=== PATIENT | female | born 1955 | race Caucasian/White ===

== ENCOUNTER 2017-04-03 23:21 | Emergency (ER) | payer OTHER ==
[2017-04-03] MEDS ORDERED: Adacel (T-DAP) 0.5 ML VIAL ONE (23:42)
--- NOTE | 2017-04-04 07:27 | RAD ---
RADIOGRAPH LEFT HAND 3 VIEWS: HISTORY: A 62-year-old female status post acute hand trauma from fall. FINDINGS: No dislocation. No acute fracture identified. Severe DJD at first CMC. The rest of the joints are relatively normal. IMPRESSION: 1. No acute fracture identified. 2. Severe osteoarthrosis of the first carpometacarpal joint. POS: [facility]
--- NOTE | 2017-04-04 07:43 | RAD ---
LEFT FOREARM: Two views. HISTORY: Injury with pain to the left forearm. FINDINGS/IMPRESSION: No evidence of fracture. No acute osseous abnormality. There are degenerative changes noted at the first carpometacarpal joint. POS: [facility]
== END 2017-04-04 00:14 | disposition home or self-care (01) ==
LOC: SCSER 23:21
DX: S01.81XA Laceration without foreign body of other part of head, initial encounter (principal); S60.222A Contusion of left hand, initial encounter; I10 Essential (primary) hypertension; F41.9 Anxiety disorder, unspecified; E78.5 Hyperlipidemia, unspecified; Z79.899 Other long term (current) drug therapy; Z79.52 Long term (current) use of systemic steroids; Z79.82 Long term (current) use of aspirin; W01.198A Fall on same level from slipping, tripping and stumbling with subsequent striking against other object, initial encounter
CPT/HCPCS: 90471; 90715

== ENCOUNTER 2017-04-30 11:53 | Outpatient (CLI) | payer OTHER ==
[2017-04-30 11:29] LABS: Bilirubin Negative (Negative); Blood, Urine Negative (Negative); Clarity CLEAR (Clear); Glucose, Urine (Dipstick) Negative (Negative); Leukocyte Negative (Negative); Nitrite Negative (Negative); Protein, Urine (Dipstick) Negative (Neg-Trace); Specific Gravity, Urine 1.026 (1.002-1.036); Urobilinogen 0.2 mg/dL (0.2-1.0); pH, Urine 5.5 (5.0-9.0)
[2017-04-30 11:34] LABS: #Eosinphils 0.1 thou/uL (0.0-0.7); #Lymphocytes 1.9 thou/uL (1.20-3.40); #Monocytes 0.7 thou/uL (0.11-0.59); #Neutrophils 6.4 thou/uL (1.40-6.50); %Basophils 0.5 % (0.0-1.0); %Lymphocytes 21.2 % (21.0-51.0); %Monocytes 7.7 % (0.0-10.0); %Neutrophils 69.6 % (42.0-75.0); Bacteria/HPF None Seen HPF (None Seen); Hemoglobin 13.7 g/dL (12.0-16.0); Hyaline Casts/LPF 0-3 HYALINE CAST LPF (0-3 Hyaline); Mean Corpuscular HGB CONC 33.8 g/dL (32.0-36.0); Mean Corpuscular Hemoglobin 34.3 pg (27.0-31.0); Mean Platelet Volume 8.3 fL (7.4-10.4); Pathc Cast-AUWi Flag 0.13 (0-2.49); Platelet Count 228 thou/uL (130-400); RBC Distribution Width 11.4 % (11.5-14.5); RBC/HPF 0-3 HPF (0-3); Squamous Epithelial 0-3 HPF (0-3); WBC/HPF 0-3 HPF (0-3); White Blood Cell (WBC) Count 9.2 thou/uL (4.8-10.8)
[2017-04-30 11:45] LABS: Anion Gap 14 mmol/L (10-20); BUN (Urea Nitrogen) 23 mg/dL (9.8-20.1); Calc. Creatinine Clearance 0 mL/min (70-130); Calcium 10.4 mg/dL (7.8-10.44); Carbon Dioxide 24 mmol/L (23-31); Chloride 106 mmol/L (98-107); Estimated GFR-MDRD 41; Glucose 110 mg/dL (80-115); Potassium 4.2 mmol/L (3.5-5.1); Sodium 140 mmol/L (136-145)
--- NOTE | 2017-04-30 11:56 | RAD ---
2 VIEWS CHEST: Date: 04/30/17 PROVIDED CLINICAL HISTORY: Preop. FINDINGS: Comparison with 05/06/16. Cardiac and mediastinal silhouette is within normal limits. Lungs appear clear. No pleural fluid or p neumothorax apparent. IMPRESSION: No evidence for an acute cardiopulmonary process. POS: [facility]
== END 2017-04-30 11:54 | disposition home or self-care (01) ==
LOC: LABBT 11:53
PROVIDERS: ATTEND Orthopaedic Surgery Hand Surgery
DX: Z01.818 Encounter for other preprocedural examination (principal); M19.042 Primary osteoarthritis, left hand
CPT/HCPCS: 71046; 80048; 81001; 85025; 85730; 93005; 93010

== ENCOUNTER → 2017-05-08 | Day surgery (SDC) | payer OTHER ==
[2017-05-07 10:38] VITALS: BMI 32.9
[~2017-05-08] MED LIST: Bacitracin Zinc Ointment 30 gm TUBE ONE; Bupivacaine PF 0.5% 30 ML VIAL ONE; CEFAZOLIN/Water 2 GM/20 ML SYRINGE ONE; Dexamethasone 20 MG/5 ML VIAL ONE; Fentanyl 100 MCG/2 ML VIAL ONE; HYDROcodone/Acetaminophen 5/325 mg Tablet ONE; Lidocaine 1% PF 5 ML VIAL ONE; Metoclopramide HCl 10 MG/2 ML VIAL ONE; Midazolam HCl 2 mg/2 ml Vial ONE; Ondansetron HCl/PF 4 MG/2 ML Vial ONE; Propofol 200 MG/20 ML VIAL ONE; Sodium Chloride 0.9% 0 ML ONE; Thrombin 5000 UNITS/5 ML VIAL ONE; diphenhydrAMINE 50 MG/ML VIAL ONE
--- NOTE | 2017-05-11 11:58 | OP ---
DATE OF PROCEDURE: 05/08/2017 PREOPERATIVE DIAGNOSIS: Fourth webspace 3.0 cm wound, nonhealing. POSTOPERATIVE DIAGNOSES: 1. Wound as described above. 2. Communication with the joint with no gross purulence, right fourth toe metacarpophalangeal joint. PROCEDURES PERFORMED: 1. Debridement of joint fourth toe metatarsophalangeal joint. 2. Complex closure wound in multiple layers right fourth webspace, foot and toe. FINDINGS: No gross infection seen. Definite early undermining with a connection to the joint, metat arsophalangeal joint of the fourth toe. ESTIMATED BLOOD LOSS: 5 mL. TOURNIQUET TIME: None. DESCRIPTION OF PROCEDURE: After successful general LMA technique by [employer], the limb wa s prepped and draped. Time out was done appropriately. We then inspected the wound and saw that the wound communicated with the joint of the metatarsal phalangeal area of the adjacent fourth digit. T his was on its fibular or lateral side. We did dissect down to this, irrigated with 250 mL using a s yringe and a catheter in the joint and found no gross purulence. We then closed deep layer over this fissure with interrupted 3-0 Vicryl. Then, we debrided the edge of the wound and saw that it could be closed because it was more longitudinal and transverse. Then, we performed a 2-layer closure usin g deep 4-0 Monocryl and then 4-0 nylon with epidural suture simple technique. The toes had excellent circulation when I pulled on the toes to 30 degrees as there was no undue tension and no separation of the suture line. We then placed bulky dressing with antibiotic bacitracin, Adaptic in the web spa ce, including closing the web space down with a dressing and this bulky dressing was then covered wit h a postoperative shoe. Patient had pink toes all on the right foot and left the operating room with out complication.
== END ==
LOC: SDC 10:58
PROVIDERS: ATTEND Orthopaedic Surgery Hand Surgery
PROC: 0JDQ0ZZ Extraction of Right Foot Subcutaneous Tissue and Fascia, Open Approach (ICD-10-PCS; principal; 2017-05-08)
DX: S91.104A Unspecified open wound of right lesser toe(s) without damage to nail, initial encounter (principal); I10 Essential (primary) hypertension; M19.90 Unspecified osteoarthritis, unspecified site; G43.909 Migraine, unspecified, not intractable, without status migrainosus; H91.90 Unspecified hearing loss, unspecified ear; E78.5 Hyperlipidemia, unspecified; K21.9 Gastro-esophageal reflux disease without esophagitis; Z79.82 Long term (current) use of aspirin; Z79.52 Long term (current) use of systemic steroids; Z79.899 Other long term (current) drug therapy; Z88.5 Allergy status to narcotic agent; Z98.51 Tubal ligation status; Z96.653 Presence of artificial knee joint, bilateral; Z96.0 Presence of urogenital implants; Z90.49 Acquired absence of other specified parts of digestive tract; Z90.89 Acquired absence of other organs; Z90.710 Acquired absence of both cervix and uterus; Z98.890 Other specified postprocedural states; Z87.891 Personal history of nicotine dependence
CPT/HCPCS: 96374; A4216; G8978-GP-CL; G8979-GP-CL; G8980-GP-CL; J0131; J1100; J1200; J2001; J2250; J2405; J2704; J2765; J3010; J3490; S0020

== ENCOUNTER 2017-08-10 08:54 | Outpatient (CLI) | payer OTHER ==
[2017-08-10 10:25] LABS: #Basophils 0.1 thou/uL (0.0-0.2); #Eosinphils 0.2 thou/uL (0.0-0.7); #Lymphocytes 2.4 thou/uL (1.20-3.40); #Monocytes 0.9 thou/uL (0.11-0.59); #Neutrophils 8.2 thou/uL (1.40-6.50); %Basophils 0.5 % (0.0-1.0); %Eosinophils 1.7 % (0.0-10.0); %Lymphocytes 20.8 % (21.0-51.0); %Monocytes 7.6 % (0.0-10.0); %Neutrophils 69.4 % (42.0-75.0); Hemoglobin 14.2 g/dL (12.0-16.0); Mean Corpuscular HGB CONC 34.2 g/dL (32.0-36.0); Mean Corpuscular Hemoglobin 34.2 pg (27.0-31.0); Mean Platelet Volume 8.3 fL (7.4-10.4); Platelet Count 218 thou/uL (130-400); RBC Distribution Width 11.3 % (11.5-14.5); Red Blood Cell (RBC) Count 4.16 mill/uL (4.20-5.40); White Blood Cell (WBC) Count 11.7 thou/uL (4.8-10.8)
[2017-08-10 10:43] LABS: Bilirubin Negative (Negative); Blood, Urine Negative (Negative); Clarity CLEAR (Clear); Glucose, Urine (Dipstick) Negative (Negative); Leukocyte Negative (Negative); Nitrite Negative (Negative); Protein, Urine (Dipstick) Negative (Neg-Trace); Specific Gravity, Urine 1.024 (1.002-1.036); Urobilinogen 0.2 mg/dL (0.2-1.0); pH, Urine 5.5 (5.0-9.0)
[2017-08-10 10:46] LABS: Anion Gap 15 mmol/L (10-20); BUN (Urea Nitrogen) 23 mg/dL (9.8-20.1); Bacteria/HPF None Seen HPF (None Seen); Calc. Creatinine Clearance 0 mL/min (70-130); Calcium 9.8 mg/dL (7.8-10.44); Carbon Dioxide 22 mmol/L (23-31); Chloride 104 mmol/L (98-107); Estimated GFR-MDRD 50; Glucose 160 mg/dL (80-115); Hyaline Casts/LPF 0-3 HYALINE CAST LPF (0-3 Hyaline); Pathc Cast-AUWi Flag 0.43 (0-2.49); RBC/HPF 0-3 HPF (0-3); Sodium 137 mmol/L (136-145); Squamous Epithelial 0-3 HPF (0-3); WBC/HPF 0-3 HPF (0-3)
--- NOTE | 2017-08-10 11:32 | RAD ---
PA AND LATERAL CHEST XRAY: DATE: 08/10/17. HISTORY: Preoperative evaluation. COMPARISON: 04/30/17. FINDINGS: Cardiac silhouette and pulmonary vasculature are within normal limits. The lungs are clear. There i s stable mild elevation of the right hemidiaphragm. Surgical clips overlie the right upper quadrant. Degenerative changes are again noted in the spine with mild curvature of the lower thoracic spine. IMPRESSION: Stable chest without evidence of acute cardiopulmonary process. POS: [facility]
--- NOTE | 2017-08-10 16:44 | EKG ---
Test Reason : Blood Pressure : / mmHG Vent. Rate : 062 BPM Atrial Rate : 062 BPM P-R Int : 152 ms QRS Dur : 086 ms QT Int : 400 ms P-R-T Axes : 045 007 014 degrees QTc Int : 406 ms Normal sinus rhythm Minimal voltage criteria for LVH, may be normal variant Borderline ECG Confirmed by CELI WASHINGTON ([id number]) on 08/10/2017 4:44:10 PM Referred By: ABEL Confirmed By:CELI WASHINGTON
== END 2017-08-10 08:55 | disposition home or self-care (01) ==
LOC: LABBT 08:54
PROVIDERS: ATTEND Orthopaedic Surgery Hand Surgery
DX: Z01.818 Encounter for other preprocedural examination (principal); M18.9 Osteoarthritis of first carpometacarpal joint, unspecified
CPT/HCPCS: 71046; 80048; 81001; 85025; 85730; 93005; 93010

== ENCOUNTER 2017-08-13 09:25 | Outpatient (CLI) | payer OTHER ==
[2017-08-13 10:29] LABS: #Eosinphils 0.2 thou/uL (0.0-0.7); #Lymphocytes 2.5 thou/uL (1.20-3.40); #Monocytes 0.8 thou/uL (0.11-0.59); %Basophils 0.4 % (0.0-1.0); %Eosinophils 2.2 % (0.0-10.0); %Lymphocytes 29.5 % (21.0-51.0); %Monocytes 9.3 % (0.0-10.0); %Neutrophils 58.5 % (42.0-75.0); Hemoglobin 13.9 g/dL (12.0-16.0); Mean Corpuscular HGB CONC 34.5 g/dL (32.0-36.0); Mean Corpuscular Hemoglobin 34.4 pg (27.0-31.0); Mean Corpuscular Volume 99.6 fl (81.0-99.0); Platelet Count 192 thou/uL (130-400); RBC Distribution Width 11.2 % (11.5-14.5); Red Blood Cell (RBC) Count 4.05 mill/uL (4.20-5.40); White Blood Cell (WBC) Count 8.6 thou/uL (4.8-10.8)
[2017-08-13 10:33] LABS: Bilirubin Negative (Negative); Blood, Urine Negative (Negative); Clarity CLEAR (Clear); Glucose, Urine (Dipstick) Negative (Negative); Leukocyte Small (Negative); Nitrite Negative (Negative); Protein, Urine (Dipstick) Negative (Neg-Trace); Specific Gravity, Urine 1.022 (1.002-1.036); Urobilinogen 0.2 mg/dL (0.2-1.0)
[2017-08-13 10:38] LABS: Bacteria/HPF None Seen HPF (None Seen); Hyaline Casts/LPF 0-3 HYALINE CAST LPF (0-3 Hyaline); Pathc Cast-AUWi Flag 0.14 (0-2.49); RBC/HPF 0-3 HPF (0-3); Squamous Epithelial 0-3 HPF (0-3)
== END 2017-08-13 09:26 | disposition home or self-care (01) ==
LOC: LABBT 09:25
PROVIDERS: ATTEND Orthopaedic Surgery Hand Surgery
DX: Z01.818 Encounter for other preprocedural examination (principal); M18.12 Unilateral primary osteoarthritis of first carpometacarpal joint, left hand
CPT/HCPCS: 81003; 81015; 85025

== ENCOUNTER 2017-08-14 05:56 | Day surgery (SDC) | payer OTHER ==
[2017-08-10 09:14] VITALS: BMI 32.9
[2017-08-14] MEDS ORDERED: CEFAZOLIN/Water 2 GM/20 ML SYRINGE ONE (06:09)
[2017-08-14] MEDS ORDERED: Betamet Acet/Betamet Na Ph 30 MG/5 ML VIAL ONE (06:45)
[2017-08-14] MEDS ORDERED: Sodium Chloride 0.9% 10 ML ONE (06:45)
[2017-08-14] MEDS ORDERED: Bupivacaine PF 0.5% 30 ML VIAL ONE (06:45)
[2017-08-14] MEDS ORDERED: Bacitracin Zinc Ointment 30 gm TUBE ONE (06:45)
[2017-08-14] MEDS ORDERED: Fentanyl 100 MCG/2 ML VIAL ONE (06:53)
[2017-08-14] MEDS ORDERED: Midazolam HCl 2 mg/2 ml Vial ONE (07:27)
[2017-08-14] MEDS ORDERED: Ketorolac Tromethamine 30 MG/ML VIAL ONE (10:51)
--- NOTE | 2017-08-14 11:15 | RAD ---
FOUR INTRAOPERATIVE FLUOROSCOPIC IMAGES OF THE LEFT HAND: Date: 08-14-17 History: Left thumb arthroplasty. Comparison: 04-03-17 FINDINGS: Images demonstrate what appears to be removal of the left trapezium bone with images demonstrating a linear metallic device overlying the hand. Correlation with intraoperative findings is recommended. POS: [facility]
--- NOTE | 2017-08-14 11:30 | OP ---
DATE OF PROCEDURE: 08/14/2017 PREOPERATIVE DIAGNOSES: 1. Left thumb CMC osteoarthritis, severe. 2. Right thumb CMC osteoarthritis, mild. PROCEDURE: 1. Left thumb carpometacarpal joint arthroplasty with flexor carpi radialis tendon transfer. 2. Right thumb carpometacarpal joint injection with Celestone. SPECIMENS REMOVED: Trapezium entire trapezium and osteophytes from the base of the thumb metacarpal. FINDINGS: Severe osteoarthritis, 100% trapezial surface and 70% thumb. COMPLICATIONS: None. SURGEON: Bo Edwards M.D. TOURNIQUET TIME: 90 minutes. ESTIMATED BLOOD LOSS: 20 mL 0.5% Marcaine divided equally amongst all 3 incisions. DESCRIPTION OF PROCEDURE: After successful general anesthesia, the limb was prepped and draped. Bear eout was done appropriately. Then, we prepped the area over the right thumb carpometacarpal joint an d with the C-arm, we injected 1 mL of Celestone and 1 mL of Marcaine into the joint with excellent fi eld for joint space and also C-arm proving we were in the joint space. We then was able to prep and drape the left side, then timeout on the left side for the CMC arthropla sty and then we inflated the tourniquet to 250 mmHg pressure after exsanguination. A curvilinear hoc mayers stick incision was outlined, centered on the thumb carpometacarpal joint over the junction of th e palm and dorsal skin. It was carried through skin, subcutaneous tissue, dissecting the interval be tween the radial nerve, cutaneous branches successfully and the palmar cutaneous branch. We entered the fascial of the thenar muscle inserted on the ridge of the thumb carpometacarpal. Dissected throu gh this, we identified the capsule underneath the capsule of the carpometacarpal joint of the thumb a nd lifted the abductor extensor complex off of this. We performed a capsulotomy and now we were in t he joint. The 100% arthritic change of the trapezium in the ____ wear with large osteophytes around the base of the carpometacarpal joint were identified. We did a complete trapeziectomy and we spared the flexor carpi radialis without damage, lifted trapez ium out. There was some osteophyte formation, even on the second carpometacarpal joint. We removed these as well. The patient then had the radial border of the thumb identified, in its midportion from anterior to po sterior and about 15 mm distal to the articular surface an angle toward the junction of the articular surface of the opposite side in the metaphysis we drilled first with a 2.5 drill bit, then a 3.5 dri ll bit. A small curet to make it slightly larger. We then irrigated this area. A large 3-0 Prolene was placed in the deep and ulnar capsule remnant of the carpometacarpal joint of the first metacarpa l and held in place. We made two incisions, each 6 cm more distal from each other in line with the flexor radialis tendon, dissected down to the tendon, identified the tendon and then this was the most distal of these two. We then went to the most proximal incision, identified the tendon the musculotendinous junction sepa rated the muscle from the tendon and brought this into the more distal wound. Here we debrided all of the muscle until it was repaired. We pulled the tendon into the joint. We used 2-0 Vicryl and a wraparound technique to lessen the wid th and diameter of the graft and then pulled it through with a curved tendon passer with success from the second metacarpal side of the hole in the base of the metacarpal to the opposite side. We then weaved underneath the abductor pollicis complex. Then before we tightened it and sutured in for tens ion, we placed a K-wire in a nearly anatomic position in the first and second metacarpal. K-wire hel d the first through the second metacarpal. It was then cut below the skin. We finally tensioned the graft in two sites on the metacarpal base, 2 sites on the abductor extensor complex, and then suture d it to the flexor carpi radialis to make it centered on the base of the thumb. We then performed th e anterior portion of the procedure in standard fashion with two Troy needles. This was tied deep a nd secure. We released the tourniquet. Wire was cut slightly below the skin at the radial border of the metacar pal. Closed the capsule with interrupted 4-0 Vicryl. Closed subcutaneous tissue at all sites once h emostasis was obtained to include the primary wound and the 2 tendon donor sites with a running 4-0 M onocryl. Suziei-Strips were applied to all 3 incisions. We completed the injection of a total of 20 mL 0.5% Marcaine between all 3 incisions. Bulky dressing was applied and a thumb spica splint and th e digit was pink.
[2017-08-14] MEDS ORDERED: Acetaminophen/Codeine 30-300mg Tablet ONE (13:11)
--- NOTE | 2017-08-17 07:26 | RAD ---
SINGLE LIMITED FLUOROSCOPIC IMAGE RIGHT HAND: Date: 08-14-17 History: Right thumb carpal metacarpal injection. FINDINGS: Single fluoroscopic image demonstrates a needle overlying the carpal metacarpal joint of the thumb. C orrelation with intraoperative findings is recommended. POS: [facility]
== END 2017-08-14 13:45 | disposition home or self-care (01) ==
LOC: SDC 05:56
PROVIDERS: ATTEND Orthopaedic Surgery Hand Surgery
PROC: 3E0U33Z Introduction of Anti-inflammatory into Joints, Percutaneous Approach (ICD-10-PCS; principal; 2017-08-14)
PROC: 0RQT0ZZ Repair Left Carpometacarpal Joint, Open Approach (ICD-10-PCS; principal; 2017-08-14)
DX: M18.0 Bilateral primary osteoarthritis of first carpometacarpal joints (principal); Z88.5 Allergy status to narcotic agent; Z98.890 Other specified postprocedural states
CPT/HCPCS: 76001; 96372; A4216; J0702; J1885; J2250; J3010; J3490; S0020

== ENCOUNTER 2017-12-24 13:00 | Inpatient (IN) | payer OTHER ==
[2017-12-24 12:55] VITALS: BMI 33.8
[2017-12-29] MEDS ORDERED: methylPREDNISolone Sod Succ/PF 125 MG/2 ML VIAL ONE (07:51)
[2017-12-29] MEDS ORDERED: CEFAZOLIN/Water 2 GM/20 ML SYRINGE ONE (07:51)
[2017-12-29] MEDS ORDERED: Sodium Chloride 0.9% 100 ML ONE (07:51)
[2017-12-29] MEDS ORDERED: Hydrocortisone Sod Succ/PF 100 mg/2 ml Vial ONE (08:25)
[2017-12-29] MEDS ORDERED: Midazolam HCl 2 mg/2 ml Vial ONE (08:29)
[2017-12-29] MEDS ORDERED: Fentanyl 100 MCG/2 ML VIAL ONE ×2 (08:29→09:33)
[2017-12-29] MEDS ORDERED: Bupivacaine HCl 0.5%/Epinephrine 1:200,000/PF 30 ml Vial ONE (10:02)
[2017-12-29] MEDS ORDERED: Vancomycin HCl 1.5 GM in Sodium Chloride 0.9% 250 ML 300 ML IVPB SCH (11:15)
--- NOTE | 2017-12-29 11:36 | OP ---
DATE OF PROCEDURE: 12/29/2017 PREOPERATIVE DIAGNOSIS: Degenerative joint disease, left hip. POSTOPERATIVE DIAGNOSIS: Degenerative joint disease, left hip. PROCEDURE: Left total hip arthroplasty. SURGEON: Alireza Silverman M.D. TRUCK CRANE OPERATOR: Octavio Myers PA-C. BLOOD LOSS: About 200 mL. SPECIMEN: None. DRAINS: None. COMPLICATIONS: None. IMPLANTS USED: Galien Accolade #1 stem with a standard 36 mm ceramic head, a 46 mm PSL cup with X3 polyethylene. PROCEDURE IN DETAIL: After informed consent was obtained in the preoperative holding area, the patie nt was taken to the operative suite where general anesthesia was induced. The patient was then posit ioned in the lateral decubitus position. The hip was then prepped and draped in usual sterile fashio n. The patient received preoperative antibiotics. Prior to incision, time-out was called and all me mbers of the surgical team agreed upon site, surgeon, and patient. After this, a longitudinal incisi on was made directly over the trochanter, noted by palpation extending 2 fingerbreadths above and bel ow the trochanter. The deeper subcutaneous layer was undermined with Bovie electrocautery. The ilio tibial band was encountered and incised sharply and the plane below this was developed bluntly. [facility] to hold this opened. The lateral aspect of the trochanter and the abduct or muscles were encountered and then reflected anteriorly off the trochanter using Bovie electrocaute ry. Once this was completed, the anterior capsule was then encountered and identified and copious ca psulotomy was carried out, exposing the femoral neck and head. Dislocation maneuver was then performe d and an in situ provisional neck cut was then made using the oscillating saw. Attention was then tu rned to acetabular preparation and sequential reaming was carried out up to the appropriate diameter and a trial was then malleted into place with good firm resistance and no pullout. The permanent [place]allas tabular shell was then malleted squarely into place, as was the appropriate liner. Once completed, t he wound was copiously irrigated and attention was then turned to femoral preparation. Flexion and ex ternal rotation was performed of the exposed thigh and femoral elevators were then placed at the prox imal aspect of the wound. Canal finder was used to establish the length of the canal and sequential reaming was carried out, followed by broaching. Once the appropriate stability was established with the trial broaches with both flexion, extension and rotational stability, we did trial with neutral a nd 2 mm offset incremental necks. Once the appropriate size was decided upon, with good stability no janene with flexion, extension, internal and external rotation and shuck being negative, we removed the femoral trial broach and malletted into place the permanent prosthesis with good firm fit, which was also stable to rotation. Again, the hip felt very stable to flexion, extension, internal and externa l rotation. Leg lengths appeared near anatomic clinically and we were quite happy with prosthesis pl acement. Copious irrigation was then carried out through the entirety of the wound. Primary closure of the abductors was accomplished with interrupted #2 Vicryl [id number] stitches and the IT ban d was then closed with interrupted #2 Vicryl, oversewn with a #2 running barbed Quill stitch. Subcut aneous fascia was closed with running barbed Quill stitch and a subcuticular Monocryl barbed Quill st itch was used for skin closure and augmented with skin cement. A sterile dressing was applied. The p rocedure was terminated without any complication. All counts were correct. The patient was awakened in the operative suite and taken to the recovery room in stable condition.
[2017-12-29] MEDS ORDERED: Naloxone HCl 0.4 mg/ml Vial IVP PRN (12:00)
[2017-12-29] MEDS ORDERED: Hydrocerin (Eucerin) Cream 120 gm Jar TOP PRN (12:00)
[2017-12-29] MEDS ORDERED: Promethazine HCl 25 MG/ML VIAL IM PRN ×2 (12:00→15:44)
[2017-12-29] MEDS ORDERED: Ketorolac Tromethamine 30 MG/ML VIAL IVP PRN (12:00)
[2017-12-29] MEDS ORDERED: Ondansetron HCl/PF 4 MG/2 ML Vial IVP PRN ×2 (12:00→15:44)
[2017-12-29] MEDS ORDERED: Bupivacaine 0.25% 10 ML VIAL EPIDURAL PRN (12:00)
[2017-12-29] MEDS ORDERED: fentaNYL Citrate/PF 1,250 MCG, Bupivacaine 25 ML in Sodium Chloride 0.9% 250 ML 200 ML EPIDURAL SCH (12:00)
[2017-12-29] MEDS ORDERED: Zolpidem Tartrate 5 MG TAB PO PRN ×2 (12:00→15:44)
[2017-12-29] MEDS ORDERED: Fentanyl/Bupivacaine 250 ML in Premix Bag 1 BAG EPIDURAL SCH (12:00)
[2017-12-29] MEDS ORDERED: traMADol HCl 50 MG TAB PO PRN ×3 (12:00→15:44)
[2017-12-29] MEDS ORDERED: Promethazine HCl 25 MG SUPP PR PRN (12:00)
[2017-12-29] MEDS ORDERED: diphenhydrAMINE 50 MG/ML VIAL IM PRN (12:00)
[2017-12-29] MEDS ORDERED: Naloxone HCl 0.4 mg/ml Vial IV PRN (12:00)
[2017-12-29] MEDS ORDERED: Acetaminophen 325 MG TAB PO PRN (15:44)
[2017-12-29] MEDS ORDERED: Meclizine HCl 25 MG TAB PO PRN (15:44)
[2017-12-29] MEDS ORDERED: Fentanyl 100 MCG/2 ML VIAL SLOW IVP PRN ×2 (15:44)
[2017-12-29] MEDS ORDERED: Acetaminophen/Codeine 30-300mg Tablet PO PRN (15:44)
[2017-12-29] MEDS ORDERED: diphenhydrAMINE 25 MG CAP PO PRN (15:44)
[2017-12-29] MEDS ORDERED: Cyclobenzaprine 10 MG TAB PO PRN (15:44)
[2017-12-29] MEDS ORDERED: Aspirin/APAP/Caffeine Tab (Excedrin Migraine) PO PRN (15:44)
[2017-12-29] MEDS ORDERED: Non-Formulary Item 1 EACH (Buprenorphine [Butrans] 1 PATCH) TOP SCH (15:44)
[2017-12-29] MEDS ORDERED: Lidocaine-Prilocaine 2.5% Cream 5 GM TUBE TOP PRN (15:44)
[2017-12-29] MEDS ORDERED: Promethazine 25 MG TAB PO PRN (15:44)
[2017-12-29] MEDS ORDERED: Tranexamic Acid 1,000 MG in Sodium Chloride 0.9% 100 ML IVPB SCH (15:44)
[2017-12-29] MEDS ORDERED: Lidocaine 5% Patch TD PRN (15:44)
[2017-12-29] MEDS: Sodium Chloride 0.9% 1,000 ML IV SCH (16:23)
--- NOTE | 2017-12-29 16:24 | RAD ---
LEFT HIP TWO VIEWS: 12/29/17 HISTORY: Left hip replacement. FINDINGS: Total hip replacement is in place without perihardware lucency. Soft tissue gas is consistent with re cent surgery. IMPRESSION: Left hip prosthesis is in good radiographic position. POS: [facility]
[2017-12-29] MEDS: diphenhydrAMINE 25 MG CAP PO PRN (18:35)
[2017-12-29] MEDS ORDERED: GLUCOSAM PO SCH ×2 (21:00)
[2017-12-29] MEDS ORDERED: CHONDROIT PO SCH ×2 (21:00)
[2017-12-29] MEDS ORDERED: [UNRECOGNIZED DRUG - OTHER] PO SCH (21:00)
[2017-12-29] MEDS ORDERED: Non-Formulary Item 1 EACH (Potassium [Potassium] 99 MG) PO SCH (21:00)
[2017-12-29] MEDS ORDERED: [UNRECOGNIZED DRUG - OTHER] PO SCH (21:00)
[2017-12-29] MEDS ORDERED: POTASSIUM 99 MG PO SCH (21:00)
[2017-12-29] MEDS ORDERED: MANGANESE PO SCH ×2 (21:00)
[2017-12-29] MEDS: Fish Oil 1,000 MG CAP PO SCH (21:03)
[2017-12-29] MEDS: Acetaminophen 325 MG TAB PO PRN (21:03)
[2017-12-29] MEDS: Zolpidem Tartrate 5 MG TAB PO PRN (21:03)
[2017-12-29] MEDS: OXcarbazepine 300 MG TAB PO SCH (21:04)
[2017-12-29] MEDS: pyridOXINE 50 MG (B6) TAB PO SCH (21:04)
[2017-12-29] MEDS: Aspirin 81 mg Enteric Coated Tablet PO SCH (21:04)
[2017-12-29] MEDS: Calcium Carbonate + Vit D 1 TAB PO SCH (21:04)
[2017-12-29] MEDS: Ferrous Gluconate 324 MG TAB PO SCH (21:05)
[2017-12-29] MEDS: diphenhydrAMINE 50 MG/ML VIAL IVP PRN (21:31)
[2017-12-29] MEDS: CEFAZOLIN/Water 2 GM/20 ML SYRINGE SLOW IVP SCH (21:33)
[2017-12-29] MEDS ORDERED: Ketorolac Tromethamine 30 MG/ML VIAL IVP SCH (22:00)
[2017-12-30] MEDS: diphenhydrAMINE 50 MG/ML VIAL IVP PRN ×2 (01:22→06:28)
[2017-12-30] MEDS: Sodium Chloride 0.9% 1,000 ML IV SCH ×3 (02:36→21:18)
[2017-12-30] MEDS: Acetaminophen 325 MG TAB PO PRN (04:18)
[2017-12-30 05:13] LABS: Hemoglobin 10.3 g/dL (12.0-16.0); Mean Corpuscular HGB CONC 35.5 g/dL (32.0-36.0); Mean Corpuscular Hemoglobin 35.2 pg (27.0-31.0); Mean Platelet Volume 8.2 fL (7.4-10.4); Platelet Count 164 thou/uL (130-400); RBC Distribution Width 11.1 % (11.5-14.5); Red Blood Cell (RBC) Count 2.92 mill/uL (4.20-5.40); White Blood Cell (WBC) Count 11.6 thou/uL (4.8-10.8)
[2017-12-30] MEDS: CEFAZOLIN/Water 2 GM/20 ML SYRINGE SLOW IVP SCH (05:57)
[2017-12-30] MEDS: predniSONE 1 MG TAB PO SCH (08:39)
[2017-12-30] MEDS: Aspirin 81 mg Enteric Coated Tablet PO SCH ×2 (08:40→20:11)
[2017-12-30] MEDS: pyridOXINE 50 MG (B6) TAB PO SCH ×2 (08:40→20:11)
[2017-12-30] MEDS: busPIRone HCl 5 MG TAB PO SCH (08:41)
[2017-12-30] MEDS: Colchicine 0.6 MG TAB PO SCH (08:43)
[2017-12-30] MEDS: Rosuvastatin 10 MG TAB PO SCH (08:43)
[2017-12-30] MEDS: Valsartan 80 MG TAB PO SCH (08:44)
[2017-12-30] MEDS: Senokot S 8.6-50 MG TAB PO SCH ×2 (08:45→20:10)
[2017-12-30] MEDS: Cyanocobalamin (Vitamin B-12) 1,000 MCG TAB PO SCH (08:46)
[2017-12-30] MEDS: Amlodipine 10 MG TAB PO SCH (08:46)
[2017-12-30] MEDS: OXcarbazepine 300 MG TAB PO SCH ×2 (08:47→20:11)
[2017-12-30] MEDS: Ferrous Gluconate 324 MG TAB PO SCH ×2 (08:48→20:10)
[2017-12-30] MEDS: Prenatal Vitamin 1 TAB PO SCH (08:48)
[2017-12-30] MEDS: Multivitamin W/ Minerals 1 TAB PO SCH (08:49)
[2017-12-30] MEDS: AMOXicillin 250 MG CAP PO SCH (08:50)
[2017-12-30] MEDS: Acetaminophen/Codeine 30-300mg Tablet PO PRN ×4 (08:51→22:48)
[2017-12-30] MEDS ORDERED: Furosemide 40 MG TAB PO PRN (09:00)
[2017-12-30] MEDS ORDERED: BIOTIN 5000 MCG PO SCH (09:00)
[2017-12-30] MEDS: diphenhydrAMINE 25 MG CAP PO PRN ×3 (09:33→17:30)
--- NOTE | 2017-12-30 11:38 | PRG ---
DATE OF SERVICE: 12/30/2017 SUBJECTIVE: Anne is a 62-year-old white female who is postop day #1 right total hip arthroplasty . She is doing relatively well and appears very comfortable presently. OBJECTIVE: VITAL SIGNS: Temperature 98.2, pulse 90, respiratory rate is 20 unlabored, O2 saturations 97% on whitney m air, blood pressure 136/66. GENERAL: She is alert and oriented to person, place, time, and situation, and appropriate. She does not appear anxious or uncomfortable. EXTREMITIES: Her incision is clean and closed. No erythema and she is neurovascularly intact in bot h lower extremities. LABORATORY: Hemoglobin and hematocrit are 10.3 and 28.9. ASSESSMENT: A 62 white female postop day #1 right total hip arthroplasty. PLAN: Continue current management. Probable discharge home tomorrow since she looks so good.
--- NOTE | 2017-12-30 12:23 | CON ---
DATE OF CONSULTATION: 12/30/2017 ADMITTING PHYSICIAN: Dr. Alireza Silverman HISTORY OF PRESENT ILLNESS: The patient is a 62-year-old female status post left hip replacement [place]. I have been asked to follow her medically postoperatively. She has a known history of hyperte nsion, osteoarthritis, gout, chronic pain syndrome. She reports postoperatively she is feeling well. She reports no chest pain, shortness of breath, no nausea, vomiting, diarrhea. PHYSICAL EXAMINATION: VITAL SIGNS: Her blood pressure is 136/66, O2 sat 97%, temperature 98.2. HEENT: Normocephalic, atraumatic. Sclerae and conjunctivae are clear. Throat clear. NECK: Supple, full range of motion, no masses. LUNGS: Clear. HEART: Reveals a regular rate and rhythm without murmurs, gallops, no rubs. LABORATORY DATA: Hemoglobin 10.3, hematocrit 28.9. IMPRESSION: She is stable postoperatively. PLAN: Continue home medications. We will follow through discharge.
[2017-12-30] MEDS: Fish Oil 1,000 MG CAP PO SCH (20:10)
[2017-12-30] MEDS: Calcium Carbonate + Vit D 1 TAB PO SCH (20:11)
[2017-12-30] MEDS ORDERED: Vitami E (Dl,Tocopheryl Acet) 400 UNITS CAP PO SCH (21:00)
[2017-12-30] MEDS: Zolpidem Tartrate 5 MG TAB PO PRN (22:48)
[2017-12-31 05:14] LABS: Hemoglobin 11.2 g/dL (12.0-16.0); Mean Corpuscular HGB CONC 34.3 g/dL (32.0-36.0); Mean Corpuscular Hemoglobin 34.6 pg (27.0-31.0); Mean Platelet Volume 8.3 fL (7.4-10.4); Platelet Count 167 thou/uL (130-400); RBC Distribution Width 11.2 % (11.5-14.5); Red Blood Cell (RBC) Count 3.23 mill/uL (4.20-5.40); White Blood Cell (WBC) Count 13.2 thou/uL (4.8-10.8)
[2017-12-31] MEDS: Acetaminophen 325 MG TAB PO PRN (06:18)
--- NOTE | 2017-12-31 08:48 | PRG ---
DATE OF SERVICE: 12/31/2017 SUBJECTIVE: Ms. Khalil is doing well postoperatively. As a matter of fact, I think she is going to be discharged home today. She is feeling comfortable, no medical complaints are noted. PHYSICAL EXAMINATION: VITAL SIGNS: Blood pressure 100/60, O2 sat 94% on room air, temperature 98.4. LUNGS: Clear. HEART: Reveals a regular rate and rhythm without murmurs, gallops or rubs. NEUROLOGIC: Alert and oriented x3. IMPRESSION: Status post left hip replacement. PLAN: Medically, she is stable, she can be discharged home.
[2017-12-31] MEDS: Acetaminophen/Codeine 30-300mg Tablet PO PRN ×2 (08:53→15:24)
[2017-12-31] MEDS: Sodium Chloride 0.9% 1,000 ML IV SCH (09:22)
[2017-12-31] MEDS: predniSONE 1 MG TAB PO SCH (09:25)
[2017-12-31] MEDS: OXcarbazepine 300 MG TAB PO SCH (09:26)
[2017-12-31] MEDS: Valsartan 80 MG TAB PO SCH (09:26)
[2017-12-31] MEDS: Prenatal Vitamin 1 TAB PO SCH (09:26)
[2017-12-31] MEDS: Senokot S 8.6-50 MG TAB PO SCH (09:26)
[2017-12-31] MEDS: Colchicine 0.6 MG TAB PO SCH (09:26)
[2017-12-31] MEDS: Cyanocobalamin (Vitamin B-12) 1,000 MCG TAB PO SCH (09:27)
[2017-12-31] MEDS: Aspirin 81 mg Enteric Coated Tablet PO SCH (09:27)
[2017-12-31] MEDS: Rosuvastatin 10 MG TAB PO SCH (09:27)
[2017-12-31] MEDS: Amlodipine 10 MG TAB PO SCH (09:27)
[2017-12-31] MEDS: busPIRone HCl 5 MG TAB PO SCH (09:27)
[2017-12-31] MEDS: Ferrous Gluconate 324 MG TAB PO SCH (09:27)
[2017-12-31] MEDS: pyridOXINE 50 MG (B6) TAB PO SCH (09:28)
[2017-12-31] MEDS: Multivitamin W/ Minerals 1 TAB PO SCH (09:28)
[2017-12-31] MEDS: AMOXicillin 250 MG CAP PO SCH (09:29)
[2017-12-31 12:30] VITALS: TEMP 97.6
[2017-12-31 13:50] VITALS: BP 108/65
[2018-01-01] MEDS ORDERED: CeleCOXIB 100 MG CAP PO SCH (21:00)
== END 2017-12-31 15:40 | disposition home or self-care (01) | DRG 470 ==
LOC: SURG A 12-29 06:35 → UNDOADMIN 12-29 10:22 → SURG A 12-29 15:42
PROVIDERS: ADMIT Orthopaedic Surgery; ATTEND Orthopaedic Surgery
PROC: 0SRB04A Replacement of Left Hip Joint with Ceramic on Polyethylene Synthetic Substitute, Uncemented, Open Approach (ICD-10-PCS; principal; 2017-12-29)
DX: M16.12 Unilateral primary osteoarthritis, left hip (principal); I10 Essential (primary) hypertension; M76.71 Peroneal tendinitis, right leg; M76.892 Other specified enthesopathies of left lower limb, excluding foot; E78.00 Pure hypercholesterolemia, unspecified; G89.4 Chronic pain syndrome; M10.9 Gout, unspecified; Z96.653 Presence of artificial knee joint, bilateral; Z87.891 Personal history of nicotine dependence; Z79.82 Long term (current) use of aspirin; Z88.5 Allergy status to narcotic agent
CPT/HCPCS: 36415; 85027; G8978-GP-CM; G8979-GP-CJ; G8987-GO-CJ; G8988-GO-CI; J0670; J1200; J1720; J2250; J2405; J2930; J3010; J3370; J3490; J7050

== ENCOUNTER 2019-02-28 08:42 | Outpatient (CLI) | payer MEDICARE, OTHER ==
--- NOTE | 2019-02-28 09:41 | BD ---
DEXA BONE DENSITY SCAN: DATE: 02/28/2019. HISTORY: Postmenopausal female undergoing screening for osteoporosis. FINDINGS: Please use the template L1 0.896 -0.9 L2 0.972 -0.5 L3 1.004 -0.7 L4 0.972 -0.8 total 0.961 -0.8 femoral neck 0.744 -0.9 total proximal femur 0.9, 980.5 Lumbar Spine: BMD (g/cm2) L1 0.896 T-Score: -0.9 L2 0.972 T-Score: -0.5 L3 1.004 T-Score: -0.7 L4 0.972 T-Score: -0.8 L1-L4 0.961 T-Score: -0.8 Femoral Neck: 9.744 T-Score: -0.9 Total Femur: 0.998 T-Score: 0.5 FRAX-WHO fracture risk assessment tool was not reported as all T-scores are at or above -1.0. IMPRESSION: Normal bone mineral density exam. Transcribed Date/Time: 02/28/2019 11:16 AM
== END 2019-02-28 08:43 | disposition home or self-care (01) ==
LOC: BICMAMMO 08:42
PROVIDERS: ATTEND Internal Medicine Rheumatology
DX: M81.0 Age-related osteoporosis without current pathological fracture (principal)
CPT/HCPCS: 77080

== ENCOUNTER 2020-04-10 15:43 | Inpatient (IN) | payer MEDICARE, OTHER ==
[2020-04-10 16:32] LABS: Hemoglobin 13.1 g/dL (12.0-16.0); Mean Corpuscular HGB CONC 34.8 g/dL (32.0-36.0); Mean Corpuscular Hemoglobin 35.6 pg (27.0-31.0); RBC Distribution Width 11.4 % (11.5-14.5); Red Blood Cell (RBC) Count 3.67 mill/uL (4.20-5.40); White Blood Cell (WBC) Count 4.3 thou/uL (4.8-10.8)
[2020-04-10 16:50] LABS: #Monocytes 0.3 thou/uL (0.11-0.59); %Basophils 0.7 % (0.0-1.0); %Eosinophils 0.1 % (0.0-10.0); %Lymphocytes 22.6 % (21.0-51.0); %Monocytes 6.8 % (0.0-10.0); %Neutrophils 69.8 % (42.0-75.0); MDiff Complete? YES; Macrocytosis SLIGHT = 6-15 cells (100X) (0-5/hpf); Mean Platelet Volume 8.9 fL (7.4-10.4); Platelet Count 102 thou/uL (130-400); Platelet Morphology Comment Appears Decreased
[2020-04-10 16:56] LABS: ALT (SGPT) 21 U/L (8-55); AST (SGOT) 46 U/L (5-34); Albumin 3.9 g/dL (3.4-4.8); Alkaline Phosphatase 65 U/L (40-110); Anion Gap 17 mmol/L (10-20); BUN (Urea Nitrogen) 22 mg/dL (9.8-20.1); Bilirubin, Total 0.3 mg/dL (0.2-1.2); Calc. Creatinine Clearance 0 mL/min (70-130); Calcium 8.9 mg/dL (7.8-10.44); Carbon Dioxide 22 mmol/L (23-31); Chloride 104 mmol/L (98-107); Globulin 2.6 g/dL (2.4-3.5); Glucose 148 mg/dL (80-115); Potassium 4.1 mmol/L (3.5-5.1); Protein, Total 6.5 g/dL (6.0-8.3); Sodium 139 mmol/L (136-145)
[2020-04-10] MEDS ORDERED: cefTRIAXone\\ROCEPHIN 2 GM VIAL ONE (17:00)
[2020-04-10] MEDS ORDERED: Azithromycin 500 MG VIAL ONE (17:30)
--- NOTE | 2020-04-10 17:49 | PDOC.HHP ---
Hospitalist HPI - History of Present Illness Shortness of breath History of Present Illness: Patient was sent from respiratory clinic for suspicious for COVID-19 infection, patient reports that she is sick for almost 1 week, her symptoms started with runny nose and nasal congestion and subsequently progressed with a sore throat and dry irritating cough with shortness of breath on exertion,. She was not having any fever, she denies any chest pain, patient reports that her was also having similar symptoms in he was tested for Covid and result was indeterminant. Patient also went to clinic and she had not done the rapid test but PCR was sent and result will be available tomorrow, when patient presented to clinic at that time she was hypoxic, her saturation was 79% on room air, her oxygen saturation improved to 94% on 2 L, patient reports that she had a positive exposure from a massage therapist 10 days ago. ED Course: VITAL SIGNS ThuApr 10, 2020 16:20 HINA Newton Melanie BP: 137/69, Pulse: 77, Resp: 26, Temp: 98.4 (Oral), Pain: 0, O2 sat: 79 on (Room Air), Time: 04/10/2020 16:20. VITAL SIGNS ThuApr 10, 2020 16:21 HINA Newton Melanie O2 sat: 94 on (2L Oxygen), Time: 04/10/2020 16:21. Hospitalist ROS - Review of Systems Constitutional: reports: weakness, malaise. denies: fever, chills, sweats, other Eyes: denies: pain, vision change, conjunctivae inflammation, eyelid inflammation, redness, other ENT: reports: nose congestion, throat pain. denies: ear pain, ear discharge, nose pain, nose discharge, mouth pain, mouth swelling, throat swelling, other Respiratory: reports: cough, dry, shortness of breath, SOB with excertion. denies: hemoptysis, pleuritic pain, sputum, wheezing, other Cardiovascular: denies: chest pain, palpitations, orthopnea, paroxysmal noc. dyspnea, edema, light headedness, other Gastrointestinal: denies: nausea, vomiting, abdominal pain, diarrhea, constipation, melena, hematochezia, other Genitourinary: denies: dysuria, frequency, incontinence, hematuria, retention, other Musculoskeletal: denies: neck pain, shoulder pain, arm pain, back pain, hand pain, leg pain, foot pain, other Skin: denies: rash, lesions, lila, bruising, other - Medication Medications: Allergies hydrocodone bitartrate [From Vicodin] Allergy (Mild, Verified 07/10/19 16:19) Headache Home medication Medication Instructions Recorded Confirmed Type Fish Oil 1,400 mg PO HS 10/28/12 12/24/17 History Furosemide [Lasix] 40 mg PO PRN PRN 10/28/12 12/24/17 History Lidocaine 5% Patch [Lidoderm 5% 1 patch TD DAILY PRN 10/28/12 12/24/17 History Patch] Metoprolol Succinate [Toprol XL] 100 mg PO QAM 10/28/12 12/24/17 History Promethazine [Phenergan] 25 mg PO Q6HR PRN 10/28/12 12/24/17 History Rosuvastatin [Crestor] 10 mg PO QAM 10/28/12 12/24/17 History Vitamin E 1,200 unit PO 10/28/12 12/24/17 History Zolpidem Tartrate [Ambien] 10 mg PO HS PRN 10/28/12 12/24/17 History Colchicine 0.6 mg PO QAM 06/09/13 12/24/17 History Aspirin/Acetaminophen/Caffeine 2 tablet PO Q6HR PRN 05/06/16 12/24/17 History [Excedrin Extra Strength Caplet] Biotin [Hard Nails] 5,000 mcg PO QAM 05/06/16 12/24/17 History Calcium Carbonate/Vitamin D3 1 tablet PO 05/06/16 12/24/17 History [Calcium 600 + Vitamin D 400] Cyanocobalamin (Vitamin B-12) 1,000 mcg PO QAM 05/06/16 12/24/17 History [Vitamin B-12] Lidocaine/Prilocaine 1 appful I-DERMAL PRN PRN 05/06/16 12/24/17 History [Lidocaine-Prilocaine Cream] Meclizine HCl 25 mg PO BID PRN 05/06/16 12/24/17 History amLODIPine/Valsartan [Exforge] 1 tab PO QAM 05/06/16 12/24/17 History busPIRone HCl [Buspirone HCl] 7.5 mg PO DAILY 05/06/16 12/24/17 History dimenhyDRINATE [Dramamine] 25 mg PO Q6HR PRN 05/06/16 12/24/17 History predniSONE [Prednisone] 3 mg PO QAM 05/06/16 12/24/17 History OXcarbazepine [Trileptal] 300 mg PO BID 05/13/16 12/24/17 History Pantoprazole Sodium 1 tab PO QAM 04/30/17 12/24/17 History Celecoxib [Celebrex] 200 mg PO BID 05/07/17 12/24/17 History Glucosam/Chondroit/C/Manganese 1 capsule PO BID 05/07/17 12/24/17 History [Cosamin DS Capsule] pyridOXINE [Vitamin B 6] 50 mg PO BID 05/07/17 12/24/17 History Buprenorphine [Butrans] 1 patch TOP Q7D 08/10/17 12/24/17 History Cyclobenzaprine [Flexeril] 10 mg PO TID PRN 08/10/17 12/24/17 History Pnv No.95/Ferrous Fum/Folic AC 1 each PO DAILY 08/10/17 12/24/17 History [ Formula Tablet] Potassium 99 mg PO HS 08/10/17 12/24/17 History traMADol HCl/Acetaminophen 1 tab PO ASDIR PRN 08/10/17 12/24/17 History [Tramadol-Acetaminophn 37.5-325] Acetaminophen With Codeine 1 tablet PO Q6HR PRN 12/24/17 12/24/17 History [Tylenol with Codeine #3] Amoxicillin [Amoxil] 2,000 mg PO DAILY 12/24/17 12/24/17 History Levofloxacin [Levaquin] 500 mg PO DAILY 12/24/17 12/24/17 History Aspirin [Ecotrin Low Strength] 81 mg PO BID tab 12/31/17 Rx Hospitalist History - Past Medical History Other Medical History: Adrenal insufficiency Osteoarthritis Diverticulitis Hypertension Dyslipidemia - Past Surgical History Other Surgical History: Bilateral knee replacement No repair Cyst removed from by back Bladder suspension Appendicectomy Cholecystectomy Hernia repair x2 Hysterectomy Tonsillectomy - Family History Other Family History: No strong family history of premature coronary artery disease stroke or cancer - Social History Other Social History: Patient is , lives at home with her , no history of tobacco alcohol or illicit drug abuse - Exam General Appearance: NAD, awake alert Eye: PERRL, anicteric sclera ENT: normocephalic atraumatic, no oropharyngeal lesions Neck: supple, symmetric, no JVD, no thyromegaly Heart: RRR, no murmur, no gallops, no rubs Respiratory: no wheezes, no ronchi Respiratory - other findings: Bilateral scattered rales, Gastrointestinal: soft, non-tender, non-distended, normal bowel sounds Extremities: no cyanosis, no clubbing, no edema Skin: normal turgor, no lesions Neurological: no focal deficits Musculoskeletal: normal tone, normal strength Psychiatric: normal affect, normal behavior, A&O x 3 Hospitalist Results - Labs Result Diagrams: 04/10/20 16:15 04/10/20 16:15 Lab results: WBC 4.3 thou/uL (4.8-10.8) L 04/10/20 16:15 Hgb 13.1 g/dL (12.0-16.0) 04/10/20 16:15 Hct 37.6 % (36.0-47.0) 04/10/20 16:15 MCV 103.0 fL (78.0-98.0) H 04/10/20 16:15 Plt Count 102 thou/uL (130-400) L 04/10/20 16:15 Neutrophils % 69.8 % (42.0-75.0) 04/10/20 16:15 Sodium 139 mmol/L (136-145) 04/10/20 16:15 Potassium 4.1 mmol/L (3.5-5.1) 04/10/20 16:15 Chloride 104 mmol/L (98-107) 04/10/20 16:15 Carbon Dioxide 22 mmol/L (23-31) L 04/10/20 16:15 BUN 22 mg/dL (9.8-20.1) H 04/10/20 16:15 Creatinine 1.19 mg/dL (0.6-1.1) H 04/10/20 16:15 Glucose 148 mg/dL (80-115) H 04/10/20 16:15 Lactic Acid 1.5 mmol/L (0.5-2.2) 04/10/20 16:15 Calcium 8.9 mg/dL (7.8-10.44) 04/10/20 16:15 Total Bilirubin 0.3 mg/dL (0.2-1.2) 04/10/20 16:15 AST 46 U/L (5-34) H 04/10/20 16:15 ALT 21 U/L (8-55) 04/10/20 16:15 Alkaline Phosphatase 65 U/L (40-110) 04/10/20 16:15 Troponin I Less than 0.010 ng/mL (< 0.028) 04/10/20 16:15 Serum Total Protein 6.5 g/dL (6.0-8.3) 04/10/20 16:15 Albumin 3.9 g/dL (3.4-4.8) 04/10/20 16:15 - EKG Interpretation EK lead EKG shows normal sinus rhythm, Rate (beats per minute): 76, with no ectopics, Interpretation: normal EKG, Conduction normal, ST segments normal, T waves normal, [place] normal, Clinical impression: Normal EKG. - Radiology Interpretation Chest x-ray Status: image reviewed by me Additional Comment: Chest x-ray consistent with patchy bilateral interstitial and airspace disease consistent with pneumonia Hospitalist H&P A/P - Problem (1) Acute respiratory failure due to COVID-19 Code(s): U07.1 - COVID-19; J96.00 - ACUTE RESPIRATORY FAILURE, UNSP W HYPOXIA OR HYPERCAPNIA Status: Acute (2) Pneumonia due to 2019 novel coronavirus Code(s): U07.1 - COVID-19; J12.89 - OTHER VIRAL PNEUMONIA Status: Acute (3) Hypertension Code(s): I10 - ESSENTIAL (PRIMARY) HYPERTENSION Status: Chronic Qualifiers: Hypertension type: essential hypertension Qualified Code(s): I10 - Essential (primary) hypertension (4) Dyslipidemia Code(s): E78.5 - HYPERLIPIDEMIA, UNSPECIFIED Status: Chronic (5) Arthritis Code(s): M19.90 - UNSPECIFIED OSTEOARTHRITIS, UNSPECIFIED SITE Status: Chronic (6) Gastroesophageal reflux disease Code(s): K21.9 - GASTRO-ESOPHAGEAL REFLUX DISEASE WITHOUT ESOPHAGITIS Status: Chronic Qualifiers: Esophagitis presence: without esophagitis Qualified Code(s): K21.9 - Gastro-esophageal reflux disease without esophagitis (7) Adrenal insufficiency Code(s): E27.40 - UNSPECIFIED ADRENOCORTICAL INSUFFICIENCY Status: Chronic - Plan Plan: Admission to medical floor Dexamethasone 6 mg IV daily Vitamin C and zinc sulfate Remdesivir evaluation Rocephin and azithromycin Check inflammatory marker Monitor oxygen saturation and monitor for any further deterioration Wean off oxygen as tolerated Medication reviewed and continue provide symptomatic and supportive care Her home medication will be reconciled Follow-up on COVID-19 test result but most likely patient has Covid-like illness so we will treat as of COVID-19 infection . DVT prophylaxis Lovenox 40 mg subcu daily GI prophylaxis Pepcid 20 mg p.o. twice daily CODE STATUS patient is full code Position plan based on clinical course.
[2020-04-10 17:51] LABS: SARS-CoV-2 NAA Rapid Test DETECTED (NotDetected)
[2020-04-10] MEDS ORDERED: Calcium Carbonate 500 MG ChewTAB PO PRN (20:31)
[2020-04-10] MEDS ORDERED: Senokot S 8.6-50 MG TAB PO PRN (20:31)
[2020-04-10] MEDS ORDERED: Bisacodyl 10 MG SUPP PR PRN (20:31)
[2020-04-10 20:34] VITALS: BMI 37.3
[2020-04-10] MEDS ORDERED: Albuterol 200 PUFF (6.7GM INHALER) INH PRN (21:10)
[2020-04-10] MEDS: Famotidine 20 MG TAB PO SCH (21:18)
[2020-04-10] MEDS: Zolpidem Tartrate 5 MG TAB PO PRN (21:21)
[2020-04-10] MEDS: Guaifenesin DM 100-10/5 ML UDCUP PO PRN (21:21)
[2020-04-10] MEDS: Acetaminophen 325 MG TAB PO PRN (23:53)
[2020-04-11] MEDS ORDERED: REMDESIVIR (EUA) 200 MG in Sodium Chloride 0.9% 250 ML 210 ML IV SCH (00:15)
[2020-04-11 06:41] LABS: #Lymphocytes 1.3 thou/uL (1.20-3.40); #Monocytes 0.4 thou/uL (0.11-0.59); #Neutrophils 1.7 thou/uL (1.40-6.50); %Basophils 0.5 % (0.0-1.0); %Eosinophils 0.3 % (0.0-10.0); %Lymphocytes 37.6 % (21.0-51.0); %Monocytes 11.3 % (0.0-10.0); %Neutrophils 50.3 % (42.0-75.0); Hemoglobin 11.5 g/dL (12.0-16.0); Mean Corpuscular HGB CONC 33.7 g/dL (32.0-36.0); Mean Corpuscular Hemoglobin 34.4 pg (27.0-31.0); Mean Platelet Volume 9.1 fL (7.4-10.4); Platelet Count 96 thou/uL (130-400); RBC Distribution Width 11.4 % (11.5-14.5); Red Blood Cell (RBC) Count 3.35 mill/uL (4.20-5.40); White Blood Cell (WBC) Count 3.4 thou/uL (4.8-10.8)
[2020-04-11 07:03] LABS: ALT (SGPT) 13 U/L (8-55); AST (SGOT) 37 U/L (5-34); Albumin 3.1 g/dL (3.4-4.8); Alkaline Phosphatase 51 U/L (40-110); Anion Gap 17 mmol/L (10-20); BUN (Urea Nitrogen) 17 mg/dL (9.8-20.1); Bilirubin, Total 0.2 mg/dL (0.2-1.2); Calc. Creatinine Clearance 91 mL/min (70-130); Calcium 8.1 mg/dL (7.8-10.44); Carbon Dioxide 20 mmol/L (23-31); Chloride 108 mmol/L (98-107); Globulin 2.6 g/dL (2.4-3.5); Glucose 89 mg/dL (80-115); Potassium 3.6 mmol/L (3.5-5.1); Protein, Total 5.7 g/dL (6.0-8.3); Sodium 141 mmol/L (136-145)
[2020-04-11] MEDS: Ascorbic Acid 500 mg Chewable Tablet PO SCH (07:53)
[2020-04-11] MEDS: Famotidine 20 MG TAB PO SCH ×2 (07:53→19:14)
[2020-04-11] MEDS: Dexamethasone 4 mg/ml Vial SLOW IVP SCH (07:53)
[2020-04-11] MEDS: Zinc Sulfate 220 MG CAP PO SCH (07:53)
[2020-04-11] MEDS: Enoxaparin Sodium 40 MG/0.4 ML SYRINGE SC SCH (07:53)
[2020-04-11 08:29] LABS: Bacteria/HPF 1+ HPF (None Seen); Bilirubin Negative (Negative); Blood, Urine 1+ (Negative); Clarity Turbid (Clear); Glucose, Urine (Dipstick) Normal (Negative); Ketone, Urine Negative (Negative); Leukocyte 250 Leu/uL (Negative); Nitrite Negative (Negative); Protein, Urine (Dipstick) 20 mg/dL (Neg-Trace); Specific Gravity, Urine 1.028 (1.002-1.036); Transitional Epithelial 0-3 HPF (None Seen); Urobilinogen Normal mg/dL (Less than 2); WBC/HPF Greater than 50 HPF (0-3); pH, Urine 5.5 (5.0-9.0)
[2020-04-11] MEDS: Ondansetron ODT 4 MG TAB PO PRN ×2 (13:04→20:08)
[2020-04-11] MEDS ORDERED: cefTRIAXone\\ROCEPHIN 1 GM in Sodium Chloride 0.9% 100 ML IVPB SCH (17:00)
[2020-04-11] MEDS: Azithromycin 500 MG in Sodium Chloride 0.9% 250 ML 250 ML IVPB SCH (17:25)
[2020-04-11] MEDS: Guaifenesin DM 100-10/5 ML UDCUP PO PRN ×2 (20:08→23:57)
[2020-04-11] MEDS: REMDESIVIR (EUA) 100 MG in Sodium Chloride 0.9% 250 ML 230 ML IV SCH (23:40)
[2020-04-11] MEDS: Acetaminophen 325 MG TAB PO PRN (23:57)
[2020-04-12] MEDS: Ascorbic Acid 500 mg Chewable Tablet PO SCH (07:53)
[2020-04-12] MEDS: Famotidine 20 MG TAB PO SCH ×2 (07:53→20:48)
[2020-04-12] MEDS: Zinc Sulfate 220 MG CAP PO SCH (07:53)
[2020-04-12] MEDS: Dexamethasone 4 mg/ml Vial SLOW IVP SCH (07:53)
[2020-04-12] MEDS: Enoxaparin Sodium 40 MG/0.4 ML SYRINGE SC SCH (07:54)
[2020-04-12] MEDS: Azithromycin 500 MG in Sodium Chloride 0.9% 250 ML 250 ML IVPB SCH (17:59)
--- NOTE | 2020-04-12 19:29 | PDOC.HOSPP ---
- Subjective Encounter Date: 04/12/20 Encounter Time: 12:45 Subjective: Patient up in bed no complaints. - Objective Vital Signs & Weight: Vital Signs (12 hours) Temp Pulse Resp BP Pulse Ox 04/12/20 12:30 22 H 91 L 04/12/20 09:45 98.1 F 96 04/12/20 08:00 98.1 F 112 H 24 H 158/82 H 90 L Weight Weight 204 lb 2.369 oz I&O: 04/11/20 04/12/20 04/13/20 06:59 06:59 06:59 Intake Total 460 820 Balance 460 820 Result Diagrams: 04/11/20 05:57 04/11/20 05:57 Hospitalist ROS - Review of Systems Cardiovascular: denies: chest pain, palpitations, orthopnea, paroxysmal noc. dyspnea, edema, light headedness, other Gastrointestinal: denies: nausea, vomiting, abdominal pain, diarrhea, constipation, melena, hematochezia, other Genitourinary: denies: dysuria, frequency, incontinence, hematuria, retention, other - Medication Medications: Active Medications Generic Name Dose Route Start Last Admin Trade Name Freq PRN Reason Stop Dose Admin Acetaminophen 650 mg 04/10/20 20:31 04/11/20 23:57 Acetaminophen 325 Mg Tab PO 650 mg Q4H PRN Administration Headache/Fever/Mild Pain (1-3) Ascorbic Acid 1,000 mg 04/11/20 09:00 04/12/20 07:53 Ascorbic Acid 500 Mg Chewable Tablet PO 1,000 mg DAILY MONICA Administration Dexamethasone 6 mg 04/11/20 09:00 04/12/20 07:53 Dexamethasone 4 Mg/Ml Vial SLOW IVP 6 mg DAILY MONICA Administration Enoxaparin Sodium 40 mg 04/11/20 09:00 04/12/20 07:54 Enoxaparin Sodium 40 Mg/0.4 Ml Syringe SC Not Given 0900 MONICA Famotidine 20 mg 04/10/20 21:00 04/12/20 07:53 Famotidine 20 Mg Tab PO 20 mg BID MONICA Administration Guaifenesin/Dextromethorphan 15 ml 04/10/20 20:31 04/11/20 23:57 Guaifenesin Dm 100-10/5 Ml Udcup PO 15 ml Q4H PRN Administration Cough Azithromycin 500 mg/ Sodium 250 mls @ 250 mls/hr 04/11/20 17:00 04/12/20 17:59 Chloride IVPB 250 mls 1700 MONICA Administration Remdesivir 100 mg/ Sodium 250 mls @ 250 mls/hr 04/12/20 00:30 04/11/20 23:40 Chloride IV 04/15/20 01:29 250 mls Q24H MONICA Administration Ondansetron HCl 4 mg 04/11/20 12:27 04/11/20 20:08 Ondansetron Odt 4 Mg Tab PO 4 mg Q6H PRN Administration Nausea/Vomiting Zinc Sulfate 220 mg 04/11/20 09:00 04/12/20 07:53 Zinc Sulfate 220 Mg Cap PO 220 mg DAILY MONICA Administration Zolpidem Tartrate 5 mg 04/10/20 20:31 04/10/20 21:21 Zolpidem Tartrate 5 Mg Tab PO 5 mg HSPRN PRN Administration Insomnia - Exam Respiratory: negative: CTAB, no wheezes, no rales, no ronchi, normal chest expansion, no tachypnea, normal percussion, rales, rhonchi, tachypneic, wheezes Gastrointestinal: negative: soft, non-tender, non-distended, normal bowel sounds, no palpable masses, no hepatomegaly, no splenomegaly, no bruit, no guarding, no rigidity, tender to palpation, distended, diminished bowl sounds, voluntary guarding Extremities: 1+ LE edema Hosp A/P (1) Acute respiratory failure due to COVID-19 Code(s): U07.1 - COVID-19; J96.00 - ACUTE RESPIRATORY FAILURE, UNSP W HYPOXIA OR HYPERCAPNIA Status: Acute (2) COVID-19 Code(s): U07.1 - COVID-19 Status: Acute (3) Dyslipidemia Code(s): E78.5 - HYPERLIPIDEMIA, UNSPECIFIED Status: Chronic (4) Gastroesophageal reflux disease Code(s): K21.9 - GASTRO-ESOPHAGEAL REFLUX DISEASE WITHOUT ESOPHAGITIS Status: Chronic Qualifiers: Esophagitis presence: without esophagitis Qualified Code(s): K21.9 - Gastro-esophageal reflux disease without esophagitis (5) Hypertension Code(s): I10 - ESSENTIAL (PRIMARY) HYPERTENSION Status: Chronic Qualifiers: Hypertension type: essential hypertension Qualified Code(s): I10 - Essential (primary) hypertension - Plan We will continue patient's remdesivir. Patient on DVT prophylaxis. Continue IV steroids. 04/12 we will continue remdesivir. Patient encouraged to eat more. We will get physical therapy to see the patient. We will continue IV steroids. Check inflammatory markers in a.m.
--- NOTE | 2020-04-12 19:31 | PDOC.HOSPP ---
- Subjective Encounter Date: 04/11/20 Encounter Time: 12:30 Subjective: Patient up in bed denies any complaint - Objective Vital Signs & Weight: Vital Signs (12 hours) Temp Pulse Resp BP Pulse Ox 04/12/20 12:30 22 H 91 L 04/12/20 09:45 98.1 F 96 04/12/20 08:00 98.1 F 112 H 24 H 158/82 H 90 L Weight Weight 204 lb 2.369 oz I&O: 04/11/20 04/12/20 04/13/20 06:59 06:59 06:59 Intake Total 460 820 Balance 460 820 Result Diagrams: 04/11/20 05:57 04/11/20 05:57 Hospitalist ROS - Review of Systems Cardiovascular: denies: chest pain, palpitations, orthopnea, paroxysmal noc. dyspnea, edema, light headedness, other Gastrointestinal: denies: nausea, vomiting, abdominal pain, diarrhea, constipation, melena, hematochezia, other Genitourinary: denies: dysuria, frequency, incontinence, hematuria, retention, other - Medication Medications: Active Medications Generic Name Dose Route Start Last Admin Trade Name Freq PRN Reason Stop Dose Admin Acetaminophen 650 mg 04/10/20 20:31 04/11/20 23:57 Acetaminophen 325 Mg Tab PO 650 mg Q4H PRN Administration Headache/Fever/Mild Pain (1-3) Ascorbic Acid 1,000 mg 04/11/20 09:00 04/12/20 07:53 Ascorbic Acid 500 Mg Chewable Tablet PO 1,000 mg DAILY MONICA Administration Dexamethasone 6 mg 04/11/20 09:00 04/12/20 07:53 Dexamethasone 4 Mg/Ml Vial SLOW IVP 6 mg DAILY MONICA Administration Enoxaparin Sodium 40 mg 04/11/20 09:00 04/12/20 07:54 Enoxaparin Sodium 40 Mg/0.4 Ml Syringe SC Not Given 0900 MONICA Famotidine 20 mg 04/10/20 21:00 04/12/20 07:53 Famotidine 20 Mg Tab PO 20 mg BID MONICA Administration Guaifenesin/Dextromethorphan 15 ml 04/10/20 20:31 04/11/20 23:57 Guaifenesin Dm 100-10/5 Ml Udcup PO 15 ml Q4H PRN Administration Cough Azithromycin 500 mg/ Sodium 250 mls @ 250 mls/hr 04/11/20 17:00 04/12/20 17:59 Chloride IVPB 250 mls 1700 MONICA Administration Remdesivir 100 mg/ Sodium 250 mls @ 250 mls/hr 04/12/20 00:30 04/11/20 23:40 Chloride IV 04/15/20 01:29 250 mls Q24H MONICA Administration Ondansetron HCl 4 mg 04/11/20 12:27 04/11/20 20:08 Ondansetron Odt 4 Mg Tab PO 4 mg Q6H PRN Administration Nausea/Vomiting Zinc Sulfate 220 mg 04/11/20 09:00 04/12/20 07:53 Zinc Sulfate 220 Mg Cap PO 220 mg DAILY MONICA Administration Zolpidem Tartrate 5 mg 04/10/20 20:31 04/10/20 21:21 Zolpidem Tartrate 5 Mg Tab PO 5 mg HSPRN PRN Administration Insomnia - Exam Heart: negative: RRR, no murmur, no gallops, no rubs, normal peripheral pulses, irregular, diminshed peripheral pulses, murmur present, II/IV, III/IV Respiratory: negative: CTAB, no wheezes, no rales, no ronchi, normal chest expansion, no tachypnea, normal percussion, rales, rhonchi, tachypneic, wheezes Gastrointestinal: negative: soft, non-tender, non-distended, normal bowel sounds, no palpable masses, no hepatomegaly, no splenomegaly, no bruit, no guarding, no rigidity, tender to palpation, distended, diminished bowl sounds, voluntary guarding Hosp A/P (1) COVID-19 Code(s): U07.1 - COVID-19 Status: Acute (2) Acute respiratory failure due to COVID-19 Code(s): U07.1 - COVID-19; J96.00 - ACUTE RESPIRATORY FAILURE, UNSP W HYPOXIA OR HYPERCAPNIA Status: Acute (3) Dyslipidemia Code(s): E78.5 - HYPERLIPIDEMIA, UNSPECIFIED Status: Chronic (4) Gastroesophageal reflux disease Code(s): K21.9 - GASTRO-ESOPHAGEAL REFLUX DISEASE WITHOUT ESOPHAGITIS Status: Chronic Qualifiers: Esophagitis presence: without esophagitis Qualified Code(s): K21.9 - Gastro-esophageal reflux disease without esophagitis (5) Hypertension Code(s): I10 - ESSENTIAL (PRIMARY) HYPERTENSION Status: Chronic Qualifiers: Hypertension type: essential hypertension Qualified Code(s): I10 - Essential (primary) hypertension - Plan We will continue patient's remdesivir. Patient on DVT prophylaxis. Continue IV steroids.
[2020-04-12] MEDS: Guaifenesin DM 100-10/5 ML UDCUP PO PRN (21:01)
[2020-04-12] MEDS: Zolpidem Tartrate 5 MG TAB PO PRN (21:15)
[2020-04-13] MEDS: REMDESIVIR (EUA) 100 MG in Sodium Chloride 0.9% 250 ML 230 ML IV SCH (00:31)
[2020-04-13] MEDS: Acetaminophen 325 MG TAB PO PRN (00:39)
[2020-04-13] MEDS: Benzonatate 100 MG CAP PO PRN ×4 (01:17→22:32)
[2020-04-13 06:33] LABS: ALT (SGPT) 17 U/L (8-55); AST (SGOT) 45 U/L (5-34); Alkaline Phosphatase 51 U/L (40-110); Anion Gap 14 mmol/L (10-20); BUN (Urea Nitrogen) 19 mg/dL (9.8-20.1); Bilirubin, Total 0.3 mg/dL (0.2-1.2); Calc. Creatinine Clearance 94 mL/min (70-130); Calcium 8.3 mg/dL (7.8-10.44); Carbon Dioxide 26 mmol/L (23-31); Chloride 107 mmol/L (98-107); Globulin 2.7 g/dL (2.4-3.5); Glucose 96 mg/dL (80-115); Potassium 3.9 mmol/L (3.5-5.1); Protein, Total 5.7 g/dL (6.0-8.3); Sodium 143 mmol/L (136-145)
[2020-04-13 06:36] LABS: ALT (SGPT) 15 U/L (8-55); AST (SGOT) 45 U/L (5-34); Alkaline Phosphatase 53 U/L (40-110); Bilirubin, Direct 0.2 mg/dL (0.1-0.3); Bilirubin, Total 0.3 mg/dL (0.2-1.2); Protein, Total 5.6 g/dL (6.0-8.3)
[2020-04-13] MEDS: Dexamethasone 4 mg/ml Vial SLOW IVP SCH (08:28)
[2020-04-13] MEDS: Zinc Sulfate 220 MG CAP PO SCH (08:29)
[2020-04-13] MEDS: Ascorbic Acid 500 mg Chewable Tablet PO SCH (08:29)
[2020-04-13] MEDS: Enoxaparin Sodium 40 MG/0.4 ML SYRINGE SC SCH (08:29)
[2020-04-13] MEDS: Famotidine 20 MG TAB PO SCH (08:29)
[2020-04-13] MEDS: Guaifenesin DM 100-10/5 ML UDCUP PO PRN ×3 (08:30→22:33)
[2020-04-13] MEDS ORDERED: Lidocaine-Prilocaine 2.5% Cream 5 GM TUBE TOP SCH ×2 (09:45→10:15)
[2020-04-13] MEDS: Loperamide HCl 2 MG CAP PO PRN ×2 (12:07→18:05)
--- NOTE | 2020-04-13 17:26 | PDOC.HOSPP ---
- Subjective Encounter Date: 04/13/20 Encounter Time: 12:30 Subjective: Patient up in bed has some diarrhea. - Objective Vital Signs & Weight: Vital Signs (12 hours) Temp Pulse Resp BP BP Pulse Ox 04/13/20 14:17 98.4 F 96 20 136/85 90 L 04/13/20 08:00 98.1 F 101 H 20 159/82 H 94 L Weight Weight 204 lb 2.369 oz I&O: 04/12/20 04/13/20 04/14/20 06:59 06:59 06:59 Intake Total 820 620 360 Balance 820 620 360 Result Diagrams: 04/11/20 05:57 04/13/20 05:54 Hospitalist ROS - Review of Systems Cardiovascular: denies: chest pain, palpitations, orthopnea, paroxysmal noc. dyspnea, edema, light headedness, other Gastrointestinal: denies: nausea, vomiting, abdominal pain, diarrhea, constipation, melena, hematochezia, other Genitourinary: denies: dysuria, frequency, incontinence, hematuria, retention, other - Medication Medications: Active Medications Generic Name Dose Route Start Last Admin Trade Name Freq PRN Reason Stop Dose Admin Acetaminophen 650 mg 04/10/20 20:31 04/13/20 00:39 Acetaminophen 325 Mg Tab PO 650 mg Q4H PRN Administration Headache/Fever/Mild Pain (1-3) Ascorbic Acid 1,000 mg 04/11/20 09:00 04/13/20 08:29 Ascorbic Acid 500 Mg Chewable Tablet PO 1,000 mg DAILY MONICA Administration Benzonatate 100 mg 04/10/20 20:31 04/13/20 08:29 Benzonatate 100 Mg Cap PO 100 mg Q4H PRN Administration Cough Dexamethasone 6 mg 04/11/20 09:00 04/13/20 08:28 Dexamethasone 4 Mg/Ml Vial SLOW IVP 6 mg DAILY MONICA Administration Enoxaparin Sodium 40 mg 04/11/20 09:00 04/13/20 08:29 Enoxaparin Sodium 40 Mg/0.4 Ml Syringe SC 40 mg 0900 MONICA Administration Guaifenesin/Dextromethorphan 15 ml 04/10/20 20:31 04/13/20 08:30 Guaifenesin Dm 100-10/5 Ml Udcup PO 15 ml Q4H PRN Administration Cough Azithromycin 500 mg/ Sodium 250 mls @ 250 mls/hr 04/11/20 17:00 04/12/20 17:59 Chloride IVPB 250 mls 1700 MONICA Administration Remdesivir 100 mg/ Sodium 250 mls @ 250 mls/hr 04/12/20 00:30 04/13/20 00:31 Chloride IV 04/15/20 01:29 250 mls Q24H MONICA Administration Loperamide HCl 2 mg 04/10/20 20:31 04/13/20 12:07 Loperamide Hcl 2 Mg Cap PO 2 mg PRN PRN Administration Diarrhea/Loose Stools Ondansetron HCl 4 mg 04/11/20 12:27 04/11/20 20:08 Ondansetron Odt 4 Mg Tab PO 4 mg Q6H PRN Administration Nausea/Vomiting Zinc Sulfate 220 mg 04/11/20 09:00 04/13/20 08:29 Zinc Sulfate 220 Mg Cap PO 220 mg DAILY MONICA Administration - Exam Neck: negative: supple, symmetric, no JVD, no thyromegaly, no lymphadenopathy, no carotid bruit, JVD Heart: negative: RRR, no murmur, no gallops, no rubs, normal peripheral pulses, irregular, diminshed peripheral pulses, murmur present, II/IV, III/IV Respiratory: negative: CTAB, no wheezes, no rales, no ronchi, normal chest expansion, no tachypnea, normal percussion, rales, rhonchi, tachypneic, wheezes Gastrointestinal: negative: soft, non-tender, non-distended, normal bowel sounds, no palpable masses, no hepatomegaly, no splenomegaly, no bruit, no guarding, no rigidity, tender to palpation, distended, diminished bowl sounds, voluntary guarding Hosp A/P (1) Acute respiratory failure due to COVID-19 Code(s): U07.1 - COVID-19; J96.00 - ACUTE RESPIRATORY FAILURE, UNSP W HYPOXIA OR HYPERCAPNIA Status: Acute (2) COVID-19 Code(s): U07.1 - COVID-19 Status: Acute (3) Dyslipidemia Code(s): E78.5 - HYPERLIPIDEMIA, UNSPECIFIED Status: Chronic (4) Gastroesophageal reflux disease Code(s): K21.9 - GASTRO-ESOPHAGEAL REFLUX DISEASE WITHOUT ESOPHAGITIS Status: Chronic Qualifiers: Esophagitis presence: without esophagitis Qualified Code(s): K21.9 - Gastr o-esophageal reflux disease without esophagitis (5) Hypertension Code(s): I10 - ESSENTIAL (PRIMARY) HYPERTENSION Status: Chronic Qualifiers: Hypertension type: essential hypertension Qualified Code(s): I10 - Essential (primary) hypertension - Plan We will continue patient's remdesivir. Patient on DVT prophylaxis. Continue IV steroids. 04/12 we will continue remdesivir. Patient encouraged to eat more. We will get physical therapy to see the patient. We will continue IV steroids. Check inflammatory markers in a.m. 04/13 we will continue remdesivir. We will get PT to see the patient. Patient encouraged to eat. Will order some Ensure.
[2020-04-13] MEDS: Azithromycin 500 MG in Sodium Chloride 0.9% 250 ML 250 ML IVPB SCH (18:05)
[2020-04-13] MEDS: Zolpidem Tartrate 5 MG TAB PO SCH (20:16)
[2020-04-13] MEDS: busPIRone HCl 5 MG TAB PO SCH (20:16)
[2020-04-13] MEDS: Fish Oil 1,000 MG CAP PO SCH (20:16)
[2020-04-13] MEDS: OXcarbazepine 300 MG TAB PO SCH (20:16)
[2020-04-13] MEDS ORDERED: Non-Formulary Item 1 EACH (Buspirone Hcl [Buspirone Hcl] 7.5 MG Tablet) PO SCH (21:00)
[2020-04-14] MEDS: REMDESIVIR (EUA) 100 MG in Sodium Chloride 0.9% 250 ML 230 ML IV SCH (00:34)
[2020-04-14] MEDS: Benzonatate 100 MG CAP PO PRN ×3 (02:29→18:17)
[2020-04-14 06:54] LABS: #Lymphocytes 1.3 thou/uL (1.20-3.40); #Monocytes 0.7 thou/uL (0.11-0.59); #Neutrophils 5.5 thou/uL (1.40-6.50); %Basophils 0.2 % (0.0-1.0); %Eosinophils 0.2 % (0.0-10.0); %Lymphocytes 16.7 % (21.0-51.0); %Monocytes 9.8 % (0.0-10.0); %Neutrophils 73.1 % (42.0-75.0); Hemoglobin 11.7 g/dL (12.0-16.0); Mean Corpuscular HGB CONC 33.6 g/dL (32.0-36.0); Mean Corpuscular Hemoglobin 33.6 pg (27.0-31.0); Mean Platelet Volume 8.2 fL (7.4-10.4); Platelet Count 201 thou/uL (130-400); RBC Distribution Width 11.3 % (11.5-14.5); Red Blood Cell (RBC) Count 3.48 mill/uL (4.20-5.40); White Blood Cell (WBC) Count 7.5 thou/uL (4.8-10.8)
[2020-04-14 07:18] LABS: ALT (SGPT) 15 U/L (8-55); AST (SGOT) 34 U/L (5-34); Alkaline Phosphatase 57 U/L (40-110); Bilirubin, Direct 0.2 mg/dL (0.1-0.3); Bilirubin, Total 0.4 mg/dL (0.2-1.2); Protein, Total 5.6 g/dL (6.0-8.3)
[2020-04-14] MEDS ORDERED: Non-Formulary Item 1 EACH (Esomeprazole Magnesium [Nexium] 40 MG Cap) PO SCH (08:00)
[2020-04-14] MEDS: Zinc Sulfate 220 MG CAP PO SCH (08:38)
[2020-04-14] MEDS: Rosuvastatin 10 MG TAB PO SCH (08:38)
[2020-04-14] MEDS: Ascorbic Acid 500 mg Chewable Tablet PO SCH (08:39)
[2020-04-14] MEDS: Calcium Carbonate 600 MG + Vit D TAB PO SCH (08:39)
[2020-04-14] MEDS: Colchicine 0.6 MG TAB PO SCH (08:39)
[2020-04-14] MEDS: busPIRone HCl 5 MG TAB PO SCH ×2 (08:40→20:55)
[2020-04-14] MEDS: Metoprolol Tartrate 100 MG TAB PO SCH (08:40)
[2020-04-14] MEDS: OXcarbazepine 300 MG TAB PO SCH ×2 (08:40→20:55)
[2020-04-14] MEDS: Furosemide 40 MG TAB PO SCH ×3 (08:41→13:18)
[2020-04-14] MEDS: Potassium Chloride 10 MEQ TAB PO SCH (08:41)
[2020-04-14] MEDS: Aspirin 81 mg Enteric Coated Tablet PO SCH (08:43)
[2020-04-14] MEDS: Dexamethasone 4 mg/ml Vial SLOW IVP SCH (08:45)
[2020-04-14] MEDS: Amlodipine 10 MG TAB PO SCH (08:45)
[2020-04-14] MEDS: Enoxaparin Sodium 40 MG/0.4 ML SYRINGE SC SCH (08:46)
[2020-04-14] MEDS: Valsartan 80 MG TAB PO SCH (08:46)
[2020-04-14] MEDS ORDERED: [UNRECOGNIZED DRUG - OTHER] PO SCH (09:00)
[2020-04-14] MEDS ORDERED: VALSARTAN PO SCH (09:00)
[2020-04-14] MEDS ORDERED: Aspirin 81 mg Enteric Coated Tablet PO SCH (09:00)
[2020-04-14] MEDS ORDERED: POTASSIUM 99 MG PO SCH (09:00)
[2020-04-14] MEDS ORDERED: AMLODIPINE BESYLATE PO SCH (09:00)
--- NOTE | 2020-04-14 16:12 | PDOC.HOSPP ---
- Subjective Encounter Date: 04/14/20 Encounter Time: 11:30 Subjective: Patient up in bed no complaints. She states that she feels much better today. - Objective Vital Signs & Weight: Vital Signs (12 hours) Temp Pulse Resp BP BP Pulse Ox 04/14/20 12:00 98.1 F 04/14/20 11:30 98.1 F 75 16 148/74 H 04/14/20 08:45 94 147/87 H 04/14/20 08:00 95 04/14/20 07:16 98.1 F 94 18 147/87 H 95 Weight Weight 204 lb 2.369 oz I&O: 04/13/20 04/14/20 04/15/20 06:59 06:59 06:59 Intake Total 620 2120 200 Balance 620 2120 200 Result Diagrams: 04/14/20 06:34 04/13/20 05:54 Hospitalist ROS - Review of Systems Respiratory: denies: cough, dry, shortness of breath, hemoptysis, SOB with excertion, pleuritic pain, sputum, wheezing, other Cardiovascular: denies: chest pain, palpitations, orthopnea, paroxysmal noc. dyspnea, edema, light headedness, other Gastrointestinal: denies: nausea, vomiting, abdominal pain, diarrhea, constipation, melena, hematochezia, other - Medication Medications: Active Medications Generic Name Dose Route Start Last Admin Trade Name Freq PRN Reason Stop Dose Admin Acetaminophen 650 mg 04/10/20 20:31 04/13/20 00:39 Acetaminophen 325 Mg Tab PO 650 mg Q4H PRN Administration Headache/Fever/Mild Pain (1-3) Amlodipine Besylate 10 mg 04/14/20 09:00 04/14/20 08:45 Amlodipine 10 Mg Tab PO 10 mg DAILY MONICA Administration Ascorbic Acid 1,000 mg 04/11/20 09:00 04/14/20 08:39 Ascorbic Acid 500 Mg Chewable Tablet PO 1,000 mg DAILY MONICA Administration Aspirin 81 mg 04/14/20 09:00 04/14/20 08:43 Aspirin 81 Mg Enteric Coated Tablet PO 81 mg DAILY MONICA Administration Benzonatate 100 mg 04/10/20 20:31 04/14/20 08:38 Benzonatate 100 Mg Cap PO 100 mg Q4H PRN Administration Cough Buspirone HCl 7.5 mg 04/13/20 21:00 04/14/20 08:40 Buspirone Hcl 5 Mg Tab PO 7.5 mg BID MONICA Administration Calcium/Vitamin D 1 tab 04/14/20 09:00 04/14/20 08:39 Calcium Carbonate 600 Mg + Vit D Tab PO 1 tab DAILY MONICA Administration Colchicine 0.6 mg 04/14/20 09:00 04/14/20 08:39 Colchicine 0.6 Mg Tab PO 0.6 mg DAILY MONICA Administration Dexamethasone 6 mg 04/11/20 09:00 04/14/20 08:45 Dexamethasone 4 Mg/Ml Vial SLOW IVP 6 mg DAILY MONICA Administration Enoxaparin Sodium 40 mg 04/11/20 09:00 04/14/20 08:46 Enoxaparin Sodium 40 Mg/0.4 Ml Syringe SC 40 mg 0900 MONICA Administration Fish Oil 1,000 mg 04/13/20 21:00 04/13/20 20:16 Fish Oil 1,000 Mg Cap PO 1,000 mg HS MONICA Administration Furosemide 40 mg 04/14/20 09:00 04/14/20 13:18 Furosemide 40 Mg Tab PO 40 mg DAILY MONICA Administration Guaifenesin/Dextromethorphan 15 ml 04/10/20 20:31 04/13/20 22:33 Guaifenesin Dm 100-10/5 Ml Udcup PO 15 ml Q4H PRN Administration Cough Azithromycin 500 mg/ Sodium 250 mls @ 250 mls/hr 04/11/20 17:00 04/13/20 18:0 5 Chloride IVPB 250 mls 1700 MONICA Administration Remdesivir 100 mg/ Sodium 250 mls @ 250 mls/hr 04/12/20 00:30 04/14/20 00:34 Chloride IV 04/15/20 01:29 250 mls Q24H MONICA Administration Loperamide HCl 2 mg 04/10/20 20:31 04/13/20 18:05 Loperamide Hcl 2 Mg Cap PO 2 mg PRN PRN Administration Diarrhea/Loose Stools Metoprolol Tartrate 100 mg 04/14/20 09:00 04/14/20 08:40 Metoprolol Tartrate 100 Mg Tab PO 100 mg DAILY MONICA Administration Ondansetron HCl 4 mg 04/11/20 12:27 04/11/20 20:08 Ondansetron Odt 4 Mg Tab PO 4 mg Q6H PRN Administration Nausea/Vomiting Oxcarbazepine 300 mg 04/13/20 21:00 04/14/20 08:40 Oxcarbazepine 300 Mg Tab PO 300 mg BID MONICA Administration Pantoprazole Sodium 40 mg 04/14/20 08:00 04/14/20 08:41 Pantoprazole 40 Mg Tab PO 40 mg QAM-WM MONICA Administration Potassium Chloride 5 meq 04/14/20 09:00 04/14/20 08:41 Potassium Chloride 10 Meq Tab PO 5 meq QAM MONICA Administration Rosuvastatin Calcium 10 mg 04/14/20 09:00 04/14/20 08:38 Rosuvastatin 10 Mg Tab PO 10 mg QAM MONICA Administration Valsartan 320 mg 04/14/20 09:00 04/14/20 08:46 Valsartan 80 Mg Tab PO 320 mg DAILY MONICA Administration Zinc Sulfate 220 mg 04/11/20 09:00 04/14/20 08:38 Zinc Sulfate 220 Mg Cap PO 220 mg DAILY MONICA Administration Zolpidem Tartrate 10 mg 04/13/20 21:00 04/13/20 20:16 Zolpidem Tartrate 5 Mg Tab PO 10 mg HS MONICA Administration - Exam Heart: negative: RRR, no murmur, no gallops, no rubs, normal peripheral pulses, irregular, diminshed peripheral pulses, murmur present, II/IV, III/IV Respiratory: negative: CTAB, no wheezes, no rales, no ronchi, normal chest expansion, no tachypnea, normal percussion, rales, rhonchi, tachypneic, wheezes Gastrointestinal: negative: soft, non-tender, non-distended, normal bowel sounds, no palpable masses, no hepatomegaly, no splenomegaly, no bruit, no guarding, no rigidity, tender to palpation, distended, diminished bowl sounds, voluntary guarding Extremities: negative: no cyanosis, no clubbing, no edema, 1+ LE edema, 2+ LE edema, clubbing Hosp A/P (1) Acute respiratory failure due to COVID-19 Code(s): U07.1 - COVID-19; J96.00 - ACUTE RESPIRATORY FAILURE, UNSP W HYPOXIA OR HYPERCAPNIA Status: Acute (2) COVID-19 Code(s): U07.1 - COVID-19 Status: Acute (3) Dyslipidemia Code(s): E78.5 - HYPERLIPIDEMIA, UNSPECIFIED Status: Chronic (4) Gastroesophageal reflux disease Code(s): K21.9 - GASTRO-ESOPHAGEAL REFLUX DISEASE WITHOUT ESOPHAGITIS Status: Chronic Qualifiers: Esophagitis presence: without esophagitis Qualified Code(s): K21.9 - Gastro-esophageal reflux disease without esophagitis (5) Hypertension Code(s): I10 - ESSENTIAL (PRIMARY) HYPERTENSION Status: Chronic Qualifiers: Hypertension type: essential hypertension Qualified Code(s): I10 - Essential (primary) hypertension - Plan We will continue patient's remdesivir. Patient on DVT prophylaxis. Continue IV steroids. 04/12 we will continue remdesivir. Patient encouraged to eat more. We will get physical therapy to see the patient. We will continue IV steroids. Check inflammatory markers in a.m. 04/13 we will continue remdesivir. We will get PT to see the patient. Patient encouraged to eat. Will order some Ensure. 04/14 we will continue remdesivir. Patient ambulating with physical therapy. She has been eating well. Possible discharge in 1 to 2 days
[2020-04-14] MEDS: Azithromycin 500 MG in Sodium Chloride 0.9% 250 ML 250 ML IVPB SCH (17:55)
[2020-04-14] MEDS: Acetaminophen 325 MG TAB PO PRN (18:17)
[2020-04-14] MEDS: Fish Oil 1,000 MG CAP PO SCH (20:55)
[2020-04-14] MEDS: Zolpidem Tartrate 5 MG TAB PO SCH (20:55)
[2020-04-15] MEDS: REMDESIVIR (EUA) 100 MG in Sodium Chloride 0.9% 250 ML 230 ML IV SCH (01:26)
[2020-04-15] MEDS: Acetaminophen 325 MG TAB PO PRN ×2 (01:27→22:41)
[2020-04-15] MEDS: Guaifenesin DM 100-10/5 ML UDCUP PO PRN ×3 (01:27→18:37)
[2020-04-15 06:51] LABS: ALT (SGPT) 13 U/L (8-55); AST (SGOT) 31 U/L (5-34); Albumin 2.9 g/dL (3.4-4.8); Alkaline Phosphatase 55 U/L (40-110); Bilirubin, Direct 0.3 mg/dL (0.1-0.3); Bilirubin, Total 0.4 mg/dL (0.2-1.2); Protein, Total 5.3 g/dL (6.0-8.3)
[2020-04-15] MEDS: Amlodipine 10 MG TAB PO SCH (08:42)
[2020-04-15] MEDS: Ascorbic Acid 500 mg Chewable Tablet PO SCH (08:42)
[2020-04-15] MEDS: Metoprolol Tartrate 100 MG TAB PO SCH (08:42)
[2020-04-15] MEDS: Aspirin 81 mg Enteric Coated Tablet PO SCH (08:42)
[2020-04-15] MEDS: Rosuvastatin 10 MG TAB PO SCH (08:42)
[2020-04-15] MEDS: Furosemide 40 MG TAB PO SCH (08:43)
[2020-04-15] MEDS: Colchicine 0.6 MG TAB PO SCH (08:43)
[2020-04-15] MEDS: OXcarbazepine 300 MG TAB PO SCH ×2 (08:43→22:39)
[2020-04-15] MEDS: Potassium Chloride 10 MEQ TAB PO SCH (08:43)
[2020-04-15] MEDS: Dexamethasone 4 mg/ml Vial SLOW IVP SCH (08:45)
[2020-04-15] MEDS: Calcium Carbonate 600 MG + Vit D TAB PO SCH (08:45)
[2020-04-15] MEDS: busPIRone HCl 5 MG TAB PO SCH ×2 (08:45→22:40)
[2020-04-15] MEDS: Zinc Sulfate 220 MG CAP PO SCH (08:45)
[2020-04-15] MEDS: Enoxaparin Sodium 40 MG/0.4 ML SYRINGE SC SCH (08:47)
[2020-04-15] MEDS: Valsartan 80 MG TAB PO SCH (13:23)
--- NOTE | 2020-04-15 13:56 | PDOC.HOSPP ---
- Subjective Encounter Date: 04/15/20 Encounter Time: 12:03 Subjective: Patient up in bed feels better today. - Objective Vital Signs & Weight: Vital Signs (12 hours) Temp Pulse Resp BP Pulse Ox 04/15/20 09:57 92 L 04/15/20 08:42 97 04/15/20 07:05 98.4 F 97 18 130/83 92 L Weight Weight 202 lb 13.204 oz I&O: 04/14/20 04/15/20 04/16/20 06:59 06:59 06:59 Intake Total 2119 1550 Balance 2119 155 Result Diagrams: 04/14/20 06:34 04/13/20 05:54 Hospitalist ROS - Review of Systems Cardiovascular: denies: chest pain, palpitations, orthopnea, paroxysmal noc. dyspnea, edema, light headedness, other Gastrointestinal: denies: nausea, vomiting, abdominal pain, diarrhea, constipation, melena, hematochezia, other Genitourinary: denies: dysuria, frequency, incontinence, hematuria, retention, other - Medication Medications: Active Medications Generic Name Dose Route Start Last Admin Trade Name Freq PRN Reason Stop Dose Admin Acetaminophen 650 mg 04/10/20 20:31 04/15/20 01:27 Acetaminophen 325 Mg Tab PO 650 mg Q4H PRN Administration Headache/Fever/Mild Pain (1-3) Albuterol Sulfate 2 puff 04/10/20 21:10 04/15/20 08:46 Albuterol 200 Puff (6.7gm Inhaler) INH 2 inh [id number] PRN Administration Wheezing Amlodipine Besylate 10 mg 04/14/20 09:00 04/15/20 08:42 Amlodipine 10 Mg Tab PO 10 mg DAILY MONICA Administration Ascorbic Acid 1,000 mg 04/11/20 09:00 04/15/20 08:42 Ascorbic Acid 500 Mg Chewable Tablet PO 1,000 mg DAILY MONICA Administration Aspirin 81 mg 04/14/20 09:00 04/15/20 08:42 Aspirin 81 Mg Enteric Coated Tablet PO 81 mg DAILY MONICA Administration Benzonatate 100 mg 04/10/20 20:31 04/14/20 18:17 Benzonatate 100 Mg Cap PO 100 mg Q4H PRN Administration Cough Buspirone HCl 7.5 mg 04/13/20 21:00 04/15/20 08:45 Buspirone Hcl 5 Mg Tab PO 7.5 mg BID MONICA Administration Calcium/Vitamin D 1 tab 04/14/20 09:00 04/15/20 08:45 Calcium Carbonate 600 Mg + Vit D Tab PO 1 tab DAILY MONICA Administration Colchicine 0.6 mg 04/14/20 09:00 04/15/20 08:43 Colchicine 0.6 Mg Tab PO 0.6 mg DAILY MONICA Administration Dexamethasone 6 mg 04/11/20 09:00 04/15/20 08:45 Dexamethasone 4 Mg/Ml Vial SLOW IVP 6 mg DAILY MONICA Administration Enoxaparin Sodium 40 mg 04/11/20 09:00 04/15/20 08:47 Enoxaparin Sodium 40 Mg/0.4 Ml Syringe SC 40 mg 0900 MONICA Administration Fish Oil 1,000 mg 04/13/20 21:00 04/14/20 20:55 Fish Oil 1,000 Mg Cap PO 1,000 mg HS MONICA Administration Furosemide 40 mg 04/14/20 09:00 04/15/20 08:43 Furosemide 40 Mg Tab PO 40 mg DAILY MONICA Administration Guaifenesin/Dextromethorphan 15 ml 04/10/20 20:31 04/15/20 08:48 Guaifenesin Dm 100-10/5 Ml Udcup PO 15 ml Q4H PRN Administration Cough Azithromycin 500 mg/ Sodium 250 mls @ 250 mls/hr 04/11/20 17:00 04/14/20 17:55 Chloride IVPB 250 mls 1700 MONICA Administration Loperamide HCl 2 mg 04/10/20 20:31 04/13/20 18:05 Loperamide Hcl 2 Mg Cap PO 2 mg PRN PRN Administration Diarrhea/Loose Stools Metoprolol Tartrate 100 mg 04/14/20 09:00 04/15/20 08:42 Metoprolol Tartrate 100 Mg Tab PO 100 mg DAILY MONICA Administration Ondansetron HCl 4 mg 04/11/20 12:27 04/11/20 20:08 Ondansetron Odt 4 Mg Tab PO 4 mg Q6H PRN Administration Nausea/Vomiting Oxcarbazepine 300 mg 04/13/20 21:00 04/15/20 08:43 Oxcarbazepine 300 Mg Tab PO 300 mg BID MONICA Administration Pantoprazole Sodium 40 mg 04/14/20 08:00 04/15/20 08:42 Pantoprazole 40 Mg Tab PO 40 mg QAM-WM MONICA Administration Potassium Chloride 5 meq 04/14/20 09:00 04/15/20 08:43 Potassium Chloride 10 Meq Tab PO 5 meq QAM MONICA Administration Rosuvastatin Calcium 10 mg 04/14/20 09:00 04/15/20 08:42 Rosuvastatin 10 Mg Tab PO 10 mg QAM MONICA Administration Valsartan 320 mg 04/14/20 09:00 04/15/20 13:23 Valsartan 80 Mg Tab PO 320 mg DAILY MONICA Administration Zinc Sulfate 220 mg 04/11/20 09:00 04/15/20 08:45 Zinc Sulfate 220 Mg Cap PO 220 mg DAILY MONICA Administration Zolpidem Tartrate 10 mg 04/13/20 21:00 04/14/20 20:55 Zolpidem Tartrate 5 Mg Tab PO 10 mg HS MONICA Administration - Exam Neck: negative: supple, symmetric, no JVD, no thyromegaly, no lymphadenopathy, no carotid bruit, JVD Heart: negative: RRR, no murmur, no gallops, no rubs, normal peripheral pulses, irregular, diminshed peripheral pulses, murmur present, II/IV, III/IV Respiratory: negative: CTAB, no wheezes, no rales, no ronchi, normal chest expansion, no tachypnea, normal percussion, rales, rhonchi, tachypneic, wheezes Gastrointestinal: negative: soft, non-tender, non-distended, normal bowel sounds, no palpable masses, no hepatomegaly, no splenomegaly, no bruit, no guarding, no rigidity, tender to palpation, distended, diminished bowl sounds, voluntary guarding Hosp A/P (1) Acute respiratory failure due to COVID-19 Code(s): U07.1 - COVID-19; J96.00 - ACUTE RESPIRATORY FAILURE, UNSP W HYPOXIA OR HYPERCAPNIA Status: Acute (2) COVID-19 Code(s): U07.1 - COVID-19 Status: Acute (3) Dyslipidemia Code(s): E78.5 - HYPERLIPIDEMIA, UNSPECIFIED Status: Chronic (4) Gastroesophageal reflux disease Code(s): K21.9 - GASTRO-ESOPHAGEAL REFLUX DISEASE WITHOUT ESOPHAGITIS Status: Chronic Qualifiers: Esophagitis presence: without esophagitis Qualified Code(s): K21.9 - Gastro-esophageal reflux disease without esophagitis (5) Hypertension Code(s): I10 - ESSENTIAL (PRIMARY) HYPERTENSION Status: Chronic Qualifiers: Hypertension type: essential hypertension Qualified Code(s): I10 - Essential (primary) hypertension - Plan We will continue patient's remdesivir. Patient on DVT prophylaxis. Continue IV steroids. 04/12 we will continue remdesivir. Patient encouraged to eat more. We will get physical therapy to see the patient. We will continue IV steroids. Check inflammatory markers in a.m. 04/13 we will continue remdesivir. We will get PT to see the patient. Patient encouraged to eat. Will order some Ensure. 04/14 we will continue remdesivir. Patient ambulating with physical therapy. She has been eating well. Possible discharge in 1 to 2 days 04/15 pt last day of remdesivier she is still on 4L will monitor. possible discharge in am. she continue to eat well.
[2020-04-15] MEDS: Azithromycin 500 MG in Sodium Chloride 0.9% 250 ML 250 ML IVPB SCH (18:36)
[2020-04-15] MEDS: Zolpidem Tartrate 5 MG TAB PO SCH (21:00)
[2020-04-15] MEDS: Benzonatate 100 MG CAP PO PRN (22:39)
[2020-04-15] MEDS: Fish Oil 1,000 MG CAP PO SCH (22:39)
[2020-04-16] MEDS: Enoxaparin Sodium 40 MG/0.4 ML SYRINGE SC SCH (09:00)
[2020-04-16] MEDS: Colchicine 0.6 MG TAB PO SCH (09:00)
[2020-04-16] MEDS: Potassium Chloride 10 MEQ TAB PO SCH (09:01)
[2020-04-16] MEDS: Dexamethasone 4 mg/ml Vial SLOW IVP SCH (09:01)
[2020-04-16] MEDS: Calcium Carbonate 600 MG + Vit D TAB PO SCH (09:01)
[2020-04-16] MEDS: busPIRone HCl 5 MG TAB PO SCH (09:01)
[2020-04-16] MEDS: Rosuvastatin 10 MG TAB PO SCH (09:03)
[2020-04-16] MEDS: OXcarbazepine 300 MG TAB PO SCH (09:03)
[2020-04-16] MEDS: Aspirin 81 mg Enteric Coated Tablet PO SCH (09:03)
[2020-04-16] MEDS: Ascorbic Acid 500 mg Chewable Tablet PO SCH (09:03)
[2020-04-16] MEDS: Zinc Sulfate 220 MG CAP PO SCH (09:03)
[2020-04-16] MEDS: Amlodipine 10 MG TAB PO SCH (09:03)
[2020-04-16] MEDS: Furosemide 40 MG TAB PO SCH (09:03)
[2020-04-16] MEDS: Valsartan 80 MG TAB PO SCH (09:03)
[2020-04-16] MEDS: Metoprolol Tartrate 100 MG TAB PO SCH (09:03)
[2020-04-16] MEDS: Benzonatate 100 MG CAP PO PRN ×2 (09:07→17:01)
--- NOTE | 2020-04-16 15:29 | PDOC.DS.DS ---
Provider - Provider Date of Admission: 04/10/20 17:42 Date of Discharge: 04/16/20 Admitting Provider: Nohemi Marcos MD Primary Care Physician: Saravanan Mcqueen MD Course - Hospital Course Hospital Course: Patient initially came into the hospital with complaints of shortness of breath. She was noted to be Covid positive. She was started remdesivir and steroids. She continued to improve through the hospital stay. She is able to tolerate diet and has been walking with physical therapy. She will be discharged home on 4 L of nasal cannula. Have asked her to follow-up with her primary. I have also asked her to buy a pulse oximetry to check her oxygen saturations at home. Resuscitation Status: 04/10/20 17:56 Resuscitation Status Routine Resuscitation Status: FULL: Full Resuscitation - Labs Lab Results: 04/14/20 06:34 04/13/20 05:54 Abnormal Lab Results - Last 48 hrs 04/15/20 05:34: Serum Total Protein 5.3 L, Albumin 2.9 L Microbiology - Entire Visit 04/10/20 16:15 Venous blood - Left Hand Blood Culture - Final NO GROWTH IN 5 DAYS 04/10/20 16:15 Venous blood - Right Hand Blood Culture - Final NO GROWTH IN 5 DAYS - Physical Exam Vitals: Vital Signs (12 hours) Temp Pulse Resp BP Pulse Ox 04/16/20 13:00 83 20 94 L 04/16/20 09:03 95 04/16/20 09:00 98.2 F 114 H 22 H 137/78 92 L Weight Weight 203 lb 4.259 oz Physical Exam: The patient was seen and examined on the day of discharge. Problem - Problem (1) Acute respiratory failure due to COVID-19 Code(s): U07.1 - COVID-19; J96.00 - ACUTE RESPIRATORY FAILURE, UNSP W HYPOXIA OR HYPERCAPNIA Status: Acute (2) COVID-19 Code(s): U07.1 - COVID-19 Status: Acute (3) Dyslipidemia Code(s): E78.5 - HYPERLIPIDEMIA, UNSPECIFIED Status: Chronic (4) Gastroesophageal reflux disease Code(s): K21.9 - GASTRO-ESOPHAGEAL REFLUX DISEASE WITHOUT ESOPHAGITIS Status: Chronic Qualifiers: Esophagitis presence: without esophagitis Qualified Code(s): K21.9 - Gastro-esophageal reflux disease without esophagitis (5) Hypertension Code(s): I10 - ESSENTIAL (PRIMARY) HYPERTENSION Status: Chronic Qualifiers: Hypertension type: essential hypertension Qualified Code(s): I10 - Essential (primary) hypertension Plan - Discharge Medications Prescriptions: Aspirin 325 mg PO DAILY #10 tab Dexamethasone [Decadron] 6 mg PO DAILY #4 tablet Albuterol Sulfate [Proventil Hfa] 2 puff INH [id number] PRN #1 aer PRN Reason: Wheezing Home Medications: Medication Instructions Recorded Confirmed Type Fish Oil 1,400 mg PO HS 10/28/12 04/10/20 History Furosemide [Lasix] 40 mg PO DAILY 10/28/12 04/10/20 History Rosuvastatin [Crestor] 10 mg PO QAM 10/28/12 04/10/20 History Zolpidem Tartrate [Ambien] 10 mg PO HS 10/28/12 04/10/20 History busPIRone HCl [Buspirone HCl] 7.5 mg PO BID 05/06/16 04/10/20 History Potassium 99 mg PO DAILY 08/10/17 04/10/20 History Amlodipine Besylate/Valsartan 1 each PO DAILY 04/10/20 04/10/20 History [Exforge 10-320 mg Tablet] Calcium Carbonate/Vitamin D3 1 tablet PO DAILY 04/10/20 04/10/20 History [Calcium 600 + Vitamin D 400] Colchicine [Colcrys] 0.6 mg PO DAILY 04/10/20 04/10/20 History Esomeprazole Magnesium [NexIUM] 40 mg PO QAM- 04/10/20 04/10/20 History Lidocaine/Prilocaine 2.5% [EMLA 1 applic TOP ONE 04/10/20 04/10/20 History Cream] Metoprolol Tartrate [Lopressor] 100 mg PO DAILY 04/10/20 04/10/20 History OXcarbazepine [Trileptal] 300 mg PO BID 04/10/20 04/10/20 History Albuterol Sulfate [Proventil Hfa] 2 puff INH [id number] PRN #1 aer 04/16/20 Rx Aspirin 325 mg PO DAILY #10 tab 04/16/20 Rx Dexamethasone [Decadron] 6 mg PO DAILY #4 tablet 04/16/20 Rx Allergies: hydrocodone bitartrate [From Vicodin] Adverse Reaction (Mild, Verified 04/10/20 22:34) Headache - Discharge Instructions Discharge Instructions:: follow up with primary care doctor. please take steroids with food. Activity:: Activity as Tolerated Nourishment:: Heart Healthy Diet - Follow up Plan Referrals: Saravanan Mcqueen MD [Primary Care Provider] - Disposition: HOME Quality - Care Measures CORE MEASURES:: N/A
[2020-04-16 17:04] VITALS: BP 117/76; TEMP 98
[2020-04-16] MEDS: Azithromycin 500 MG in Sodium Chloride 0.9% 250 ML 250 ML IVPB SCH (17:11)
== END 2020-04-16 18:24 | disposition home or self-care (01) | DRG 177 ==
LOC: ERS 15:43 → T4-B 17:42
PROVIDERS: ADMIT Internal Medicine; ATTEND Internal Medicine
PROC: 8E0ZXY6 Isolation (ICD-10-PCS; principal; 2020-04-10)
PROC: XW033E5 Introduction of Remdesivir Anti-infective into Peripheral Vein, Percutaneous Approach, New Technology Group 5 (ICD-10-PCS; 2020-04-11)
DX: U07.1 COVID-19 (principal); J12.89 Other viral pneumonia; J96.01 Acute respiratory failure with hypoxia; E27.40 Unspecified adrenocortical insufficiency; E78.5 Hyperlipidemia, unspecified; K21.9 Gastro-esophageal reflux disease without esophagitis; M19.90 Unspecified osteoarthritis, unspecified site; F41.9 Anxiety disorder, unspecified; Z96.653 Presence of artificial knee joint, bilateral; I10 Essential (primary) hypertension; Z79.82 Long term (current) use of aspirin; Z79.899 Other long term (current) drug therapy; Z88.5 Allergy status to narcotic agent; Z79.52 Long term (current) use of systemic steroids; Z90.49 Acquired absence of other specified parts of digestive tract; Z90.710 Acquired absence of both cervix and uterus
CPT/HCPCS: 0240U; 36415; 80053; 80076; 81001; 82728; 83605; 83615; 84484; 85025; 85379; 86140; 87040; 87635; 93005; 94760; 96365; 96366; 96367; J0456; J0696; J1100; J1650; J7050; Q0162; U0003

== ENCOUNTER 2020-10-08 09:26 | Outpatient (CLI) | payer MEDICARE, OTHER | END 2020-10-08 09:27 | disposition home or self-care (01) | LOC: BICMRI 09:26 | PROVIDERS: ATTEND Orthopaedic Surgery | DX: M54.42 Lumbago with sciatica, left side (principal); M47.816 Spondylosis without myelopathy or radiculopathy, lumbar region; N28.9 Disorder of kidney and ureter, unspecified | CPT/HCPCS: 72148 ==

== ENCOUNTER 2021-03-04 09:54 | Outpatient (CLI) | payer MEDICARE, OTHER | END 2021-03-04 09:55 | disposition home or self-care (01) | LOC: BICMAMMO 09:54 | PROVIDERS: ATTEND Internal Medicine Rheumatology | DX: M81.0 Age-related osteoporosis without current pathological fracture (principal); M85.89 Other specified disorders of bone density and structure, multiple sites | CPT/HCPCS: 77080 ==

== ENCOUNTER 2021-08-30 13:27 | Outpatient (CLI) | payer MEDICARE, OTHER ==
[~2021-08-30 13:27] MED LIST changes: -Bacitracin Zinc Ointment 30 gm TUBE ONE; -Bupivacaine PF 0.5% 30 ML VIAL ONE; -CEFAZOLIN/Water 2 GM/20 ML SYRINGE ONE; -Dexamethasone 20 MG/5 ML VIAL ONE; -Fentanyl 100 MCG/2 ML VIAL ONE; -HYDROcodone/Acetaminophen 5/325 mg Tablet ONE; +Iopamidol-370 76% 500 ML 1 ML ONE; -Lidocaine 1% PF 5 ML VIAL ONE; -Metoclopramide HCl 10 MG/2 ML VIAL ONE; -Midazolam HCl 2 mg/2 ml Vial ONE; -Ondansetron HCl/PF 4 MG/2 ML Vial ONE; -Propofol 200 MG/20 ML VIAL ONE; -Sodium Chloride 0.9% 0 ML ONE; -Thrombin 5000 UNITS/5 ML VIAL ONE; -diphenhydrAMINE 50 MG/ML VIAL ONE
== END 2021-08-30 13:28 | disposition home or self-care (01) ==
LOC: BICCT 13:27
PROVIDERS: ATTEND Surgery
DX: M79.89 Other specified soft tissue disorders (principal)
CPT/HCPCS: 82565; Q9967

== ENCOUNTER 2021-10-14 10:27 | Outpatient (CLI) | payer MEDICARE, OTHER ==
[2021-10-14 11:33] LABS: #Eosinphils 0.1 10x3/uL (0.0-0.5); #Monocytes 1.1 10x3/uL (0.0-1.1); #Neutrophils 8.1 10x3/uL (1.5-8.4); %Basophils 0.2 % (0.0-2.0); %Eosinophils 0.8 % (0.0-6.0); %Lymphocytes 21.8 % (18.0-47.0); %Monocytes 9.1 % (0.0-10.0); %Neutrophils 67.6 % (40.0-75.0); Hemoglobin 13.9 g/dL (12.0-15.5); Mean Corpuscular HGB CONC 33.1 g/dL (32.0-36.0); Mean Corpuscular Hemoglobin 32.9 pg (27.0-33.0); Mean Corpuscular Volume 99.5 fl (81.6-98.3); Mean Platelet Volume 10.5 fl (7.4-10.4); Platelet Count 200 10x3/uL (150-450); RBC Distribution Width 12.5 % (11.5-14.5); Red Blood Cell (RBC) Count 4.22 10x6/uL (3.90-5.03)
[2021-10-14 11:55] LABS: Anion Gap 18 mmol/L (10-20); BUN (Urea Nitrogen) 17 mg/dL (9.8-20.1); Calc. Creatinine Clearance 0 mL/min (70-130); Calcium 11.6 mg/dL (7.8-10.44); Carbon Dioxide 25 mmol/L (23-31); Chloride 105 mmol/L (98-107); Glucose 146 mg/dL (80-115); Potassium 3.7 mmol/L (3.5-5.1); Sodium 144 mmol/L (136-145)
== END 2021-10-14 10:28 | disposition home or self-care (01) ==
LOC: LABBT 10:27
PROVIDERS: ATTEND Surgery
DX: Z01.818 Encounter for other preprocedural examination (principal); M79.89 Other specified soft tissue disorders; Z20.822 Contact with and (suspected) exposure to COVID-19
CPT/HCPCS: 80048; 85025; 93005; U0003; U0005; 93010

== ENCOUNTER 2021-10-17 05:42 | Day surgery (SDC) | payer MEDICARE, OTHER ==
[2021-10-15 12:32] VITALS: BMI 36.0
[2021-10-17] MEDS ORDERED: fentaNYL Citrate/PF 100 MCG/2 ML SYRINGE ONE (06:23)
[2021-10-17] MEDS ORDERED: Bupivacaine PF 0.5% 30 ML VIAL ONE (06:44)
[2021-10-17] MEDS ORDERED: Lidocaine 1% w/Epinephrine 1:100K 20 ML VIAL ONE (06:44)
[2021-10-17] MEDS ORDERED: Sodium Chloride 0.9% 100 ML ONE (07:27)
[2021-10-17] MEDS ORDERED: CEFAZOLIN 2 GM VIAL ONE (07:27)
[2021-10-17] MEDS ORDERED: Ondansetron PF 4 MG/2 ML Vial ONE (07:40)
[2021-10-17] MEDS ORDERED: PROPOFOL 200 MG/20 ML VIAL ONE (07:40)
[2021-10-17] MEDS ORDERED: Lidocaine 1% PF 5 ML VIAL ONE (07:40)
[2021-10-17] MEDS ORDERED: Glycopyrrolate 0.2 MG/ML 5 ML SYRINGE ONE (07:40)
[2021-10-17] MEDS ORDERED: Dexamethasone 20 MG/5 ML VIAL ONE (07:40)
[2021-10-17] MEDS ORDERED: Fentanyl 100 MCG/2 ML VIAL ONE ×2 (09:02→09:18)
== END 2021-10-17 12:05 | disposition home or self-care (01) ==
LOC: SDC 05:42
PROVIDERS: ATTEND Surgery
PROC: 0HB5XZZ Excision of Chest Skin, External Approach (ICD-10-PCS; principal; 2021-10-17)
PROC: 0JB70ZZ Excision of Back Subcutaneous Tissue and Fascia, Open Approach (ICD-10-PCS; 2021-10-17)
PROC: 0HB6XZZ Excision of Back Skin, External Approach (ICD-10-PCS; 2021-10-17)
PROC: 0HB6XZZ Excision of Back Skin, External Approach (ICD-10-PCS; 2021-10-17)
DX: M79.89 Other specified soft tissue disorders (principal); D23.5 Other benign neoplasm of skin of trunk; L72.0 Epidermal cyst; E78.5 Hyperlipidemia, unspecified; I10 Essential (primary) hypertension; K21.9 Gastro-esophageal reflux disease without esophagitis; M19.90 Unspecified osteoarthritis, unspecified site; E78.00 Pure hypercholesterolemia, unspecified; Z87.891 Personal history of nicotine dependence; Z79.2 Long term (current) use of antibiotics; Z79.52 Long term (current) use of systemic steroids; Z79.82 Long term (current) use of aspirin; Z79.890 Hormone replacement therapy; Z79.899 Other long term (current) drug therapy; Z88.5 Allergy status to narcotic agent; Z88.8 Allergy status to other drugs, medicaments and biological substances
CPT/HCPCS: 88304; 88305; J0690; J1100; J2405; J2704; J3010; J3490; S0020

== ENCOUNTER 2022-07-04 08:29 | Outpatient (CLI) | payer MEDICARE, OTHER | END 2022-07-04 08:30 | disposition home or self-care (01) | LOC: BICCT 08:29 | PROVIDERS: ATTEND Family Medicine | DX: R51.9 Headache, unspecified (principal) | CPT/HCPCS: 70450 ==

== ENCOUNTER 2022-08-01 11:19 | Outpatient (CLI) | payer MEDICARE, OTHER | END 2022-08-01 11:20 | disposition home or self-care (01) | LOC: BICRAD 11:19 | PROVIDERS: ATTEND Internal Medicine Rheumatology | DX: M19.071 Primary osteoarthritis, right ankle and foot (principal) ==

== ENCOUNTER 2023-03-27 09:23 | Outpatient (CLI) | payer MEDICARE, OTHER | END 2023-03-27 09:24 | disposition home or self-care (01) | LOC: SCSMRI 09:23 | PROVIDERS: ATTEND Anesthesiology Pain Medicine | DX: M54.16 Radiculopathy, lumbar region (principal); M48.061 Spinal stenosis, lumbar region without neurogenic claudication; M43.16 Spondylolisthesis, lumbar region | CPT/HCPCS: 72148 ==

== ENCOUNTER 2023-11-11 19:38 | Emergency (ER) | payer MEDICARE, OTHER | END 2023-11-11 23:22 | disposition home or self-care (01) | LOC: ERS 19:38 | DX: M79.641 Pain in right hand (principal); I10 Essential (primary) hypertension; W01.190A Fall on same level from slipping, tripping and stumbling with subsequent striking against furniture, initial encounter | CPT/HCPCS: 70450; 70486; 72125 ==

== ENCOUNTER 2023-12-08 10:40 | Outpatient (CLI) | payer MEDICARE, OTHER | END 2023-12-08 10:41 | disposition home or self-care (01) | LOC: SCSRAD 10:40 | DX: S99.911A Unspecified injury of right ankle, initial encounter (principal); S69.91XD Unspecified injury of right wrist, hand and finger(s), subsequent encounter; M19.071 Primary osteoarthritis, right ankle and foot; M18.11 Unilateral primary osteoarthritis of first carpometacarpal joint, right hand; M19.031 Primary osteoarthritis, right wrist; M19.041 Primary osteoarthritis, right hand; S92.351D Displaced fracture of fifth metatarsal bone, right foot, subsequent encounter for fracture with routine healing; M77.51 Other enthesopathy of right foot and ankle ==

== ENCOUNTER 2023-12-15 17:46 | Inpatient (IN) | payer MEDICARE, OTHER ==
[2023-12-15 18:56] LABS: #Basophils 0.04 10x3/uL (0.0-0.2); %Basophils 0.4 % (0.0-1.0); %Lymphocytes 28.4 % (21.0-51.0); %Monocytes 10.8 % (0.0-10.0); %Neutrophils 59.1 % (42.0-75.0); Hematocrit 36.7 % (36.0-47.0); Hemoglobin 12.5 g/dL (12.0-16.0); Mean Corpuscular HGB CONC 34.1 g/dL (32.0-36.0); Mean Corpuscular Hemoglobin 32.9 pg (27.0-31.0); Mean Corpuscular Volume 96.6 fL (78.0-98.0); Mean Platelet Volume 11.1 fL (7.4-10.4); Platelet Count 189 10x3/uL (130-400); RBC Distribution Width 12.2 % (11.5-14.5)
[2023-12-15 19:15] LABS: ALT (SGPT) 24 U/L (8-55); AST (SGOT) 31 U/L (5-34); Albumin 4.1 g/dL (3.4-4.8); Alkaline Phosphatase 67 U/L (40-110); Anion Gap 15 mmol/L (10-20); BUN (Urea Nitrogen) 30 mg/dL (9.8-20.1); Bilirubin, Total 0.3 mg/dL (0.2-1.2); Calc. Creatinine Clearance 0 mL/min (70-130); Calcium 9.9 mg/dL (7.8-10.44); Carbon Dioxide 22 mmol/L (23-31); Chloride 100 mmol/L (98-107); Estimated GFR 27; Globulin 3.1 g/dL (2.4-3.5); Glucose 94 mg/dL (80-115); Magnesium 1.8 mg/dL (1.6-2.6); Potassium 5.6 mmol/L (3.5-5.1); Protein, Total 7.2 g/dL (5.8-8.1); Sodium 131 mmol/L (136-145)
[2023-12-15 19:17] LABS: Troponin I 0.015 ng/mL (< 0.028)
[2023-12-15] MEDS ORDERED: Aspirin Chewable 81 MG TAB ONE (19:35)
[2023-12-15] MEDS ORDERED: Ondansetron PF 4 MG/2 ML Vial IVP PRN (19:47)
[2023-12-15] MEDS ORDERED: Ondansetron ODT 4 MG TAB PO PRN (19:47)
[2023-12-15] MEDS ORDERED: hydrALAZINE 20 MG/ML VIAL SLOW IVP PRN (20:02)
[2023-12-15] MEDS ORDERED: Albuterol 2.5 MG (3 mL) NEB NEB PRN (21:00)
[2023-12-15 21:43] LABS: Potassium 5.5 mmol/L (3.5-5.1)
[2023-12-15] MEDS: Acetaminophen 325 MG TAB PO SCH (23:15)
[2023-12-15] MEDS: Dextrose 50% Abboject 50 ML SYRINGE SLOW IVP SCH (23:46)
[2023-12-15] MEDS: CALCIUM GLUC 1 GM/NS 50 ML 1 GM in Premix 1 BAG IVPB SCH (23:46)
[2023-12-15] MEDS: Insulin Regular, Human 100 UNIT/ML 10 ML VIAL IVP SCH (23:46)
[2023-12-15] MEDS: Atorvastatin Calcium 40 MG TAB PO SCH (23:47)
[2023-12-15] MEDS: busPIRone HCl 5 MG TAB PO SCH (23:47)
[2023-12-15] MEDS: Melatonin 3 MG TAB PO SCH (23:47)
[2023-12-16] MEDS: Heparin 5,000 UNITS/ML VIAL SC SCH
[2023-12-16 01:22] VITALS: BMI 32.5
[2023-12-16 01:47] LABS: Bacteria/HPF None Seen HPF (None Seen); Bilirubin Negative (Negative); Blood, Urine Negative (Negative); CAUTI Indications for Culture Dysuria,urgency,freq; Clarity Clear (Clear); Glucose, Urine (Dipstick) Normal (Negative); Ketone, Urine Negative (Negative); Leukocyte Negative Leu/uL (Negative); Nitrite Negative (Negative); Protein, Urine (Dipstick) Negative (Neg-Trace); RBC/HPF None Seen HPF (0-3); Specific Gravity, Urine 1.008 (1.002-1.036); Squamous Epithelial None Seen HPF (0-3); Urobilinogen Normal mg/dL (Less than 2); WBC/HPF 0-3 HPF (0-3); pH, Urine 6.5 (5.0-9.0)
[2023-12-16 01:50] LABS: Urine Culture Reflex No No
[2023-12-16 01:57] LABS: Creatinine, Urine 30.64 mg/dL (47-110)
[2023-12-16] MEDS ORDERED: Lorazepam 2 MG/ML VIAL SLOW IVP SCH (02:00)
[2023-12-16 04:11] LABS: #Basophils 0.04 10x3/uL (0.0-0.2); %Basophils 0.4 % (0.0-1.0); %Eosinophils 0.6 % (0.0-10.0); %Lymphocytes 25.1 % (21.0-51.0); %Monocytes 10.1 % (0.0-10.0); %Neutrophils 63.4 % (42.0-75.0); Hematocrit 35.8 % (36.0-47.0); Hemoglobin 12.1 g/dL (12.0-16.0); Mean Corpuscular HGB CONC 33.8 g/dL (32.0-36.0); Mean Corpuscular Volume 97.5 fL (78.0-98.0); Mean Platelet Volume 11.5 fL (7.4-10.4); Platelet Count 187 10x3/uL (130-400); RBC Distribution Width 12.2 % (11.5-14.5); Red Blood Cell (RBC) Count 3.67 mill/uL (4.20-5.40)
[2023-12-16 04:49] LABS: ALT (SGPT) 23 U/L (8-55); AST (SGOT) 23 U/L (5-34); Albumin 3.8 g/dL (3.4-4.8); Alkaline Phosphatase 60 U/L (40-110); Anion Gap 16 mmol/L (10-20); BUN (Urea Nitrogen) 24 mg/dL (9.8-20.1); Bilirubin, Total 0.5 mg/dL (0.2-1.2); Calc. Creatinine Clearance 38 mL/min (70-130); Calcium 10.2 mg/dL (7.8-10.44); Carbon Dioxide 20 mmol/L (23-31); Chloride 105 mmol/L (98-107); Cholesterol 166 mg/dl (< 200 Desired); Estimated GFR 33; Globulin 2.6 g/dL (2.4-3.5); Glucose 97 mg/dL (80-115); HDL Cholesterol 41 mg/dL (>60 Neg Risk); LDL Cholesterol, Calculated 96 mg/dL; Potassium 4.8 mmol/L (3.5-5.1); Protein, Total 6.4 g/dL (5.8-8.1); Sodium 136 mmol/L (136-145); Triglycerides 143 mg/dL (Less than 150)
[2023-12-16] MEDS ORDERED: Enoxaparin 40 MG (0.4 mL) SYRINGE SC SCH (09:00)
[2023-12-16 09:32] LABS: Anion Gap 16 mmol/L (10-20); BUN (Urea Nitrogen) 22 mg/dL (9.8-20.1); Calc. Creatinine Clearance 41 mL/min (70-130); Calcium 10.4 mg/dL (7.8-10.44); Carbon Dioxide 23 mmol/L (23-31); Chloride 105 mmol/L (98-107); Estimated GFR 36; Glucose 94 mg/dL (80-115); Sodium 139 mmol/L (136-145)
[2023-12-16] MEDS: Doxycycline 100 MG CAP PO SCH (10:56)
[2023-12-16] MEDS: Metoprolol Tartrate 100 MG TAB PO SCH (10:56)
[2023-12-16] MEDS: Clopidogrel Bisulfate 75 MG TAB PO SCH (10:56)
[2023-12-16] MEDS: Aspirin 81 mg Enteric Coated Tablet PO SCH (10:56)
[2023-12-16] MEDS: Rosuvastatin 10 MG TAB PO SCH (10:56)
[2023-12-16] MEDS: Pantoprazole DR 40 MG TAB PO SCH (10:56)
[2023-12-16] MEDS: Lorazepam 2 MG/ML VIAL SLOW IVP SCH (12:34)
[2023-12-16 12:48] VITALS: BMI 32.5
[2023-12-16] MEDS: Sodium Chloride 0.9% 1,000 ML IV SCH ×2 (13:52→21:49)
[2023-12-16] MEDS: Sodium Chloride 0.9% 250 ML IV SCH (13:52)
[2023-12-16 17:17] LABS: Anion Gap 11 mmol/L (10-20); BUN (Urea Nitrogen) 23 mg/dL (9.8-20.1); Calc. Creatinine Clearance 41 mL/min (70-130); Calcium 9.5 mg/dL (7.8-10.44); Carbon Dioxide 24 mmol/L (23-31); Chloride 106 mmol/L (98-107); Estimated GFR 36; Glucose 122 mg/dL (80-115); Potassium 4.5 mmol/L (3.5-5.1); Sodium 136 mmol/L (136-145)
[2023-12-16] MEDS ORDERED: Loperamide HCl 2 MG CAP PO PRN (21:18)
[2023-12-16] MEDS: traMADol HCl 50 MG TAB PO PRN (21:46)
[2023-12-16] MEDS: Loperamide HCl 2 MG CAP PO SCH (21:47)
[2023-12-16] MEDS ORDERED: Melatonin 3 MG TAB PO SCH (22:00)
[2023-12-17] MEDS: Melatonin 3 MG TAB PO SCH (02:22)
[2023-12-17 06:07] LABS: Anion Gap 13 mmol/L (10-20); BUN (Urea Nitrogen) 23 mg/dL (9.8-20.1); Calc. Creatinine Clearance 46 mL/min (70-130); Calcium 9.4 mg/dL (7.8-10.44); Carbon Dioxide 22 mmol/L (23-31); Chloride 107 mmol/L (98-107); Estimated GFR 41; Glucose 89 mg/dL (80-115); Potassium 4.4 mmol/L (3.5-5.1); Sodium 138 mmol/L (136-145)
[2023-12-17] MEDS: Lactated Ringer's 1,000 ML IV SCH (08:24)
[2023-12-17 15:42] VITALS: BP 125/72; TEMP 98
== END 2023-12-17 17:30 | disposition home or self-care (01) | DRG 683 ==
LOC: ERS 17:46 → 2SW 19:47 → OBSVTOIN 12-16 17:22
PROVIDERS: ADMIT Internal Medicine; ATTEND Family Medicine
DX: N17.9 Acute kidney failure, unspecified (principal); E87.1 Hypo-osmolality and hyponatremia; L03.115 Cellulitis of right lower limb; R27.0 Ataxia, unspecified; H81.09 Meniere's disease, unspecified ear; F41.9 Anxiety disorder, unspecified; K21.9 Gastro-esophageal reflux disease without esophagitis; E03.9 Hypothyroidism, unspecified; I10 Essential (primary) hypertension; G25.0 Essential tremor; E87.5 Hyperkalemia; T36.8X5A Adverse effect of other systemic antibiotics, initial encounter; I25.10 Atherosclerotic heart disease of native coronary artery without angina pectoris; Z79.899 Other long term (current) drug therapy; Z86.16 Personal history of COVID-19; Z88.8 Allergy status to other drugs, medicaments and biological substances; Z79.82 Long term (current) use of aspirin
CPT/HCPCS: 36415; 36416; 70450; 70551; 71045; 71250; 74177; 80048; 80053; 80061; 81001; 82533; 82570; 83735; 84300; 84443; 84484; 85025; 85379; 87635; 93005; 96360; 96361; 96372; 96374; 96375; 96376; G0378; J0613; J1644; J1815; J2060; J7030; J7120; J7999

== ENCOUNTER 2024-02-01 10:01 | Outpatient (CLI) | payer MEDICARE, OTHER | END 2024-02-01 10:02 | disposition home or self-care (01) | LOC: BICMAMMO 10:01 | PROVIDERS: ATTEND Internal Medicine Rheumatology | DX: M81.0 Age-related osteoporosis without current pathological fracture (principal); M85.88 Other specified disorders of bone density and structure, other site | CPT/HCPCS: 77080 ==

== ENCOUNTER 2024-02-01 10:27 | Outpatient (CLI) | payer MEDICARE, OTHER | END 2024-02-01 10:28 | disposition home or self-care (01) | LOC: BICULT 10:27 | PROVIDERS: ATTEND Internal Medicine Nephrology | DX: N18.30 Chronic kidney disease, stage 3 unspecified (principal); N28.1 Cyst of kidney, acquired | CPT/HCPCS: 76770; 93975 ==

== ENCOUNTER 2024-11-25 10:51 | Outpatient (CLI) | payer MEDICARE, OTHER | END 2024-11-25 10:52 | disposition home or self-care (01) | LOC: BICMAMMO 10:51 | PROVIDERS: ATTEND Family Medicine | DX: Z12.31 Encounter for screening mammogram for malignant neoplasm of breast (principal); Z80.3 Family history of malignant neoplasm of breast | CPT/HCPCS: 77063; 77067 ==